=== PATIENT | female | born 1990 | race African-American/Black ===

== ENCOUNTER 2016-11-18 06:21 | Inpatient (IN) | payer OTHER ==
[2016-11-18 07:14] LABS: AMNISURE (ROM) POSITIVE (NEGATIVE)
[2016-11-18 07:22] LABS: APPEARANCE,URINE SLIGHTLY-CLOUDY; BILIRUBIN,URINE NEGATIVE (NEGATIVE); GLUCOSE, URINE NEGATIVE (NEGATIVE); KETONES,URINE NEGATIVE (NEGATIVE); LEUKOCYTE ESTERASE,URINE NEGATIVE (NEGATIVE); NITRITE,URINE NEGATIVE (NEGATIVE); PROTEIN,URINE NEGATIVE (NEGATIVE); URINE SPECIFIC GRAVITY 1.004; UROBILINOGEN,URINE NEGATIVE mg/dL (<2.0)
[2016-11-18] MEDS ORDERED: RINGERS SOLUTION,LACTATED 300 ML IV ONE (07:23)
[2016-11-18] MEDS ORDERED: RINGERS SOLUTION,LACTATED 1,000 ML IV PRN ×3 (07:23→23:19)
[2016-11-18] MEDS ORDERED: OXYTOCIN/NORMAL SALINE 1,000 ML IV PRN ×2 (07:23→19:15)
[2016-11-18] MEDS ORDERED: OXYTOCIN/NORMAL SALINE 20 UNIT/1,000 ML RTUINJ ONE ×2 (07:40→19:38)
[2016-11-18] MEDS ORDERED: PENICILLIN G-K 5 MILLION UNIT VIAL ONE ×2 (07:40→12:05)
[2016-11-18 07:45] LABS: URINE BARBITURATES SCREEN NEGATIVE; URINE METHADONE SCREEN NEGATIVE; URINE OPIATES LOW NEGATIVE; URINE PHENCYCLIDINE SCREEN NEGATIVE
[2016-11-18 07:48] LABS: ABSOLUTE EOSINOPHILS # (AUTO) 0.1 10^3/uL (0.0-0.6); ABSOLUTE LYMPHOCYTES (AUTO) 1.2 10^3/uL (0.5-4.7); ABSOLUTE MONOCYTES (AUTO) 0.7 10^3/uL (0.1-1.4); ABSOLUTE NEUT (AUTO) 5.5 10^3/uL (1.7-8.2); BASOPHILS % (AUTO) 0.4 % (0-2); HEMATOCRIT 31.6 % (36.0-47.0); HEMOGLOBIN 10.7 g/dL (12.0-15.5); HGB HCT DIFFERENCE 0.5; MEAN CORPUSCULAR HEMOGLOBIN 27.1 pg (27.0-33.4); MEAN CORPUSCULAR HGB CONC 33.9 g/dL (32.0-36.0); MEAN CORPUSCULAR VOLUME 80 fl (80-97); MONOCYTES % (AUTO) 9.3 % (3-13); RED BLOOD COUNT 3.96 10^6/uL (3.72-5.28); RED CELL DISTRIBUTION WIDTH 14.8 % (11.5-14.0); SEGMENTED NEUTROPHILS % (AUTO) 73.3 % (42-78); WHITE BLOOD COUNT 7.5 10^3/uL (4.0-10.5)
--- NOTE | 2016-11-18 08:01 | L&D Flow Sheet ---
LD Flowsheet Datetime Report Generated by CPN: 11/18/2016 08:00 Datetime: 11/18/2016 07:55 NBP Sys/Leanne/Mean (mmHg): 115 (QS system process) : 74 (QS system process) : 90 (QS system process) Pulse: 86 (QS system process) Communication LaborFlag: Antepartum (QS system process) Datetime: 11/18/2016 07:54 NBP Sys/Leanne/Mean (mmHg): 121 (QS system process) : 78 (QS system process) : 95 (QS system process) Pulse: 85 (QS system process) Communication LaborFlag: Antepartum (QS system process) Datetime: 11/18/2016 07:25 NBP Sys/Leanne/Mean (mmHg): 121 (QS system process) : 83 (QS system process) : 98 (QS system process) Pulse: 83 (QS system process) Communication LaborFlag: Antepartum (QS system process) Datetime: 11/18/2016 07:02 Uterine Activity Frequency (min): unsure (Alicia Prasanth, RN) Pain Pain Scale: 5 (Alicia Prasanth, RN) Pain Presence: Intermittent (Alicia Prasanth, RN) Pain Type: Contraction (Alicia Prasanth, RN) Pain Location: Abdomen; Back (Alicia Prasanth, RN) Pain Coping: Breathing Through Contractions (Alicia Prasanth, RN) Vaginal Exam Membrane Status: Ruptured (Annotations: per pt) (Alicia Prasanth, RN) Membranes Ruptured Date/Time: 11/18/2016 03:00 (Alicia Prasanth, RN) Membranes Rupture Method: Spontaneous (Alicia Prasanth, RN) Amniotic Fluid Color: Clear (Alicia Prasanth, RN) Amniotic Fluid Amount: Small (Alicia Prasanth, RN) Amniotic Fluid Odor: Normal (Alicia Prasanth, RN) Vaginal Bleeding: None (Alicia Prasanth, RN) Pool: Negative (Alicia Prasanth, RN) Maternal Assessment Level of Consciousness: Fully Conscious (Alicia Prasanth, RN) DTR's/Clonus: DTRs 2+; No Clonus (Alicia Prasanth, RN) Headache: Denies (Alicia Prasanth, RN) Breath Sounds, Left: Clear and Equal (Alicia Prasanth, RN) Breath Sounds, Right: Clear and Equal (Alicia Prasanth, RN) Nausea/Vomiting: Denies (Alicia Prasanth, RN) RUQ Epigastric Pain: Denies (Alicia Prasanth, RN) Communication LaborFlag: Antepartum (QS system process) Datetime: 11/18/2016 06:55 NBP Sys/Leanne/Mean (mmHg): 129 (QS system process) : 79 (QS system process) : 99 (QS system process) Pulse: 75 (QS system process) Temperature (F): 99.3 (Alicia Prasanth, RN) Temperature (C): 37.4 (QS system process) Temperature Route: Oral (Alicia Prasanth, RN) Communication LaborFlag: Antepartum (QS system process) Datetime: 11/18/2016 06:54 Patient Care Patient Care Comments: amnisure collected and sent (Alicia Prasanth, RN) Datetime: 11/18/2016 06:00 Vital Signs Stage of : Antepartum (Alicia Prasanth, RN)
--- NOTE | 2016-11-18 09:55 | L&D Progress Notes ---
PROGRESS NOTES Datetime Report Generated by CPN: 11/18/2016 09:54 PROGRESS NOTE Impression: Normal Progression of Labor Procedures: Sterile Vag Exam Plan: Continue Present Management; Augmentation Informed Consent Obtained: Vaginal Delivery; Risks, Benefits and Alternatives Discussed Vital Signs : Reviewed Comment: 26 yo presents with ROM EDC 11/11/16 EGA 41 weeks history of sickle cell trait - spouse negative positive GBS nkda unremarkable history abdomen nontender ctx irregular4-5 min apart start pitocin pain management reviewed pt will decide if she wants an epidural gbs prophylaxis- 1 dose given anticipate poc reviewed with pt and mother VAGINAL EXAM Dilatation: 3 Effacement: 90 Station: -2 MEMBRANES Amniotic Fluid Color: Clear FETUS A Monitoring: External US Variability: Moderate 6-25bpm Accelerations: 10X10 Decelerations: None FHR Category: Category I : 41.0 SIGNATURE SIGNATURE: [id number] Assignment: Damain MD Christiano Signature: with User ID: [email or web address] : with User ID: [email or web address]
[2016-11-18] MEDS ORDERED: EPHEDRINE SULFATE INJ 50 MG/1 ML AMPULE ONE (12:04)
[2016-11-18] MEDS ORDERED: BUPIVACAINE HCL 0.25 % INJ/PF (2.5 MG/1 ML) 30 ML VIAL ONE (12:05)
[2016-11-18] MEDS ORDERED: FENTANYL/BUPIVACAINE/NS/PF 200 MCG/100 ML RTUINJ EPI ONE (12:05)
[2016-11-18] MEDS ORDERED: LIDOCAINE 2% INJ-PF (20 MG/ML) 10 ML AMPUL ONE ×2 (15:25→19:15)
--- NOTE | 2016-11-18 16:26 | L&D Progress Notes ---
PROGRESS NOTES Datetime Report Generated by CPN: 11/18/2016 16:26 PROGRESS NOTE Procedures: Scalp Electrode Plan: Continue Present Management Informed Consent Obtained: Vaginal Delivery; Risks, Benefits and Alternatives Discussed Informed Consent Obtained: Vaginal Delivery; Risks, Benefits and Alternatives Discussed Vital Signs : Reviewed Comment: late decelerations noted ctx 1-3 minutes apart pitocin at 6 mu/ min pt repositioned scalp lead placed pt tolerated well noted thick particulate meconium O2 via facemask pitocin off minimal variability ctxs 1-2 min poc reviewed anticipate contnue prophylaxis poc reviewed with pt and family VAGINAL EXAM Dilatation: 7 Dilatation: 3 Effacement: 90 Effacement: 90 Station: -1 Station: -2 MEMBRANES Membranes: Ruptured Membranes: Ruptured Amniotic Fluid Color: Meconium, Particulate Amniotic Fluid Color: Clear FETUS A FHR - Baseline: 150 Monitoring: Internal Scalp Electrode Variability: Minimal - Undetectable to <=5bpm Decelerations: Late : 41.0 Presentation: Vertex FETUS C SIGNATURE: [id number] Assignment: Sary Alvarado MD Signature: with User ID: [email or web address] : with User ID: [email or web address]
[2016-11-18] MEDS ORDERED: CEFAZOLIN 1 GM/D5W RTU 1 GM/50 ML RTUPB IV ONE (19:13)
[2016-11-18] MEDS ORDERED: CITRIC ACID/SODIUM CITRATE ORAL SOLN 15 ML UDCUP ONE (19:13)
[2016-11-18] MEDS ORDERED: MEASLES,MUMPS&RUBELLA VACC/PF 0.5 ML VIAL SUBCUT PRN (19:15)
[2016-11-18] MEDS ORDERED: SIMETHICONE 80 MG TAB.CHEW PO PRN (19:15)
[2016-11-18] MEDS ORDERED: HYDROMORPHONE HCL INJ/PF 2 MG/ML AMPULE IV PRN (19:15)
[2016-11-18] MEDS ORDERED: ACETAMINOPHEN 100 ML IV PRN (19:15)
[2016-11-18] MEDS ORDERED: DIPH/PERTUSS(ACELL)/TETANUS VAC/PF 0.5 ML SYR (>=10YO) IM PRN (19:15)
[2016-11-18] MEDS ORDERED: ACETAMINOPHEN 325 MG TABLET PO PRN (19:15)
[2016-11-18] MEDS ORDERED: OXYCODONE-ACETAMINOPHEN 5-325 MG TABLET PO PRN (19:15)
[2016-11-18] MEDS ORDERED: PROMETHAZINE HCL INJ 25 MG/1 ML VIAL IV PRN (19:15)
[2016-11-18] MEDS ORDERED: ONDANSETRON HCL INJ/PF 4 MG/2 ML SDV ONE (19:38)
[2016-11-18] MEDS ORDERED: FENTANYL CITRATE INJ/PF 100 MCG/2 ML AMPUL ONE (19:39)
[2016-11-18] MEDS ORDERED: MIDAZOLAM 2 MG/2 ML INJ ONE (19:39)
[2016-11-18] MEDS ORDERED: MORPHINE SULFATE 10 MG/ML INJ ONE (19:39)
--- NOTE | 2016-11-18 20:02 | L&D Flow Sheet ---
LD Flowsheet Datetime Report Generated by CPN: 11/18/2016 20:00 Datetime: 11/18/2016 19:32 NBP Sys/Leanne/Mean (mmHg): 147 (QS system process) : 72 (QS system process) : 99 (QS system process) Pulse: 96 (QS system process) LaborFlag: Antepartum (QS system process) Datetime: 11/18/2016 19:30 Monitor Mode: External; Palpation (YAKELIN Walton) Frequency (min): 2-2.5 (Lexi Taras, RNC) Quality: Mild/Moderate (Lexi Taras, RNC) Duration (sec): 60-90 (Lexi Taras, RNC) Duration Criteria: Less than Two 120 Second Contractions (Lexi Taras, RNC) Pattern: Normal: <= 5 Contractions in 10 Minutes (Lexi Taras, RNC) Resting Tone (Palpate): Relaxed (Lexi Taras, RNC) Monitor Mode: External US (Lexi Grajeda, RNC) FHR Baseline Rate : 150 (Lexi Taras, RNC) Variability: Moderate 6-25 bpm (Lexi Taras, RNC) Accelerations: 15X15 (Lexi Taras, RNC) Decelerations: None (Lexi Taras, RNC) Anesthesia Comments: Franklin Fonseca CRNA at bedside bolusing epidural (Zonia Rasmussen, RN) Datetime: 11/18/2016 19:27 Communication Comments: Report to Kareen Segal RN, Abigail Grajeda RNC. (Lexi Grajeda, RNC) Datetime: 11/18/2016 19:25 Communication Comments: report received from Abigail Grajeda RN (Yvonne Segal RN) Datetime: 11/18/2016 19:16 NBP Sys/Leanne/Mean (mmHg): 131 (QS system process) : 77 (QS system process) : 97 (QS system process) Pulse: 115 (QS system process) LaborFlag: Antepartum (QS system process) Datetime: 11/18/2016 19:15 Monitor Mode: External; Palpation (YAKELIN Walton) Frequency (min): 2.5-4 (YAKELIN Walton) Quality: Moderate to Strong (YAKELIN Walton) Duration (sec): 60-90 (YAKELIN Walton) Duration Criteria: Less than Two 120 Second Contractions (YAKELIN Walton) Pattern: Normal: <= 5 Contractions in 10 Minutes (YAKELIN Walton) Resting Tone (Palpate): Relaxed (YAKELIN Walton) Monitor Mode: External US (YAKELIN Walton) FHR Baseline Rate : 155 (Lexi Taras, RNC) Variability: Moderate 6-25 bpm (Lexi Grajeda, RNC) Accelerations: 15X15 (Lexi Grajeda, RNC) Decelerations: None (Lexi Grajeda, RNC) Antibiotics: Ancef IV (Gm) @ 1 (Antonella Romero, RN) Antiemetics/Antacids: Bicitra 15 ml PO (Antonella Romero, ALEC) Datetime: 11/18/2016 19:06 Dilatation (cm): 9.0 (Lexi Grajeda, RNC) Effacement (%): 85 (Lexi Grajeda, RNC) Station: 0 (Lexi Grajeda, RNC) Exam by: Dr. Alvarado (Lexi Grajeda, RNC) Vaginal Exam Comments: Swollen anterior cervix per Dr. Alvarado (Lexi Grajeda, RNC) Communication Comments: C/S called (Lexi Grajeda RNC) Datetime: 11/18/2016 19:00 NBP Sys/Leanne/Mean (mmHg): 132 (QS system process) : 66 (QS system process) : 92 (QS system process) Pulse: 96 (QS system process) Monitor Mode: External; Palpation (Lexi Traas, RNC) Frequency (min): 2.5-4 (Lexi Taras, RNC) Quality: Mild/Moderate (Lexi Taras, RNC) Duration (sec): 90-120 (Lexi Taras, RNC) Duration Criteria: Less than Two 120 Second Contractions (Lexi Taras, RNC) Pattern: Normal: <= 5 Contractions in 10 Minutes (Lexi Taras, RNC) Resting Tone (Palpate): Relaxed (Lexi Taras, RNC) Monitor Mode: External US (Lexi Taras, RNC) FHR Baseline Rate : 150 (Lexi Taras, RNC) Variability: Moderate 6-25 bpm (Lexi Taras, RNC) Accelerations: 15X15 (Lexi Taras, RNC) Decelerations: None (Lexi Taras, RNC) LaborFlag: Antepartum (QS system process) Datetime: 11/18/2016 18:46 NBP Sys/Leanne/Mean (mmHg): 129 (QS system process) : 64 (QS system process) : 90 (QS system process) Pulse: 93 (QS system process) LaborFlag: Antepartum (QS system process) Datetime: 11/18/2016 18:45 Monitor Mode: External; Palpation (Lexi Taras, RNC) Frequency (min): 2.5-5 (Lexi Taras, RNC) Quality: Moderate to Strong (Lexi Taras, RNC) Duration (sec): 60-90 (Lexi Taras, RNC) Duration Criteria: Less than Two 120 Second Contractions (Lexi Taras, RNC) Pattern: Normal: <= 5 Contractions in 10 Minutes (Lexi Taras, RNC) Resting Tone (Palpate): Relaxed (Lexi Taras, RNC) Monitor Mode: External US (Lexi Taras, RNC) FHR Baseline Rate : 145 (Lexi Taras, RNC) Variability: Moderate 6-25 bpm (Lexi Taras, RNC) Accelerations: 15X15 (Lexi Taras, RNC) Decelerations: None (Lexi Taras, RNC) Datetime: 11/18/2016 18:31 NBP Sys/Leanne/Mean (mmHg): 136 (QS system process) : 86 (QS system process) : 106 (QS system process) Pulse: 103 (QS system process) LaborFlag: Antepartum (QS system process) Datetime: 11/18/2016 18:30 Monitor Mode: External; Palpation (Lexialena Grajeda, RNC) Frequency (min): 2.5-4 (Lexi Taras, RNC) Quality: Moderate to Strong (Lexi Taras, RNC) Duration (sec): 50-80 (Lexi Taras, RNC) Duration Criteria: Less than Two 120 Second Contractions (Lexi Taras, RNC) Pattern: Normal: <= 5 Contractions in 10 Minutes (Lexi Taras, RNC) Resting Tone (Palpate): Relaxed (Lexi Taras, RNC) Monitor Mode: External US (Lexi Taras, RNC) FHR Baseline Rate : 155 (Lexi Taras, RNC) Variability: Minimal - Undetectable to <=5 bpm (Lexi Taras, RNC) Accelerations: None (Lexi Taras, RNC) Decelerations: Early (Lexi Taras, RNC) Datetime: 11/18/2016 18:16 NBP Sys/Leanne/Mean (mmHg): 144 (QS system process) : 89 (QS system process) : 111 (QS system process) Pulse: 107 (QS system process) Respirations: 17 (Lexi Grajeda, RNC) Temperature (F): 99.7 (Lexi Grajeda, RNC) Temperature (C): 37.6 (QS system process) Temperature Route: Oral (Lexi Grajeda RNC) Pain Assessment Comments: Pt states intermittent pressure with contractions. (Lexi Grajeda, RNC) LaborFlag: Antepartum (QS system process) Datetime: 11/18/2016 18:15 Monitor Mode: External; Palpation (Lexi Grajeda RNC) Frequency (min): 2.5-3 (Lexi Grajeda, RNC) Quality: Moderate to Strong (Lexi Grajeda, RNC) Duration (sec): 60-120 (Lexi Grajeda, RNC) Duration Criteria: Less than Two 120 Second Contractions (Lexi Grajeda, RNC) Pattern: Normal: <= 5 Contractions in 10 Minutes (Lexi Grajeda, RNC) Resting Tone (Palpate): Relaxed (Lexi Grajeda, RNC) Monitor Mode: Internal Scalp Electrode (Lexi Grajeda, RNC) FHR Baseline Rate : 160 (Lexi Grajeda, RNC) Variability: Minimal - Undetectable to <=5 bpm (Lexialena Grajeda, RNC) Accelerations: None (Lexi Grajeda, RNC) Decelerations: Early (Lexi Grajeda, RNC) Patient Position/Activity: Peanut Ball; Right Extreme (Lexi Grajeda, RNC) Datetime: 11/18/2016 18:00 NBP Sys/Elanne/Mean (mmHg): 130 (QS system process) : 76 (QS system process) : 97 (QS system process) Pulse: 98 (QS system process) Monitor Mode: External; Palpation (Lexi Taras, RNC) Frequency (min): 2.5-4 (Lexi Taras, RNC) Quality: Moderate (Lexi Taras, RNC) Duration (sec): 60-90 (Lexi Taras, RNC) Duration Criteria: Less than Two 120 Second Contractions (Lexi Taras, RNC) Pattern: Normal: <= 5 Contractions in 10 Minutes (Lexi Taras, RNC) Resting Tone (Palpate): Relaxed (Lexi Taras, RNC) Monitor Mode: External US (Lexi Taras, RNC) FHR Baseline Rate : 155 (Lexi Taras, RNC) Variability: Minimal - Undetectable to <=5 bpm (Lexi Taras, RNC) Accelerations: Prolonged (Lexi Taras, RNC) Decelerations: None (Lexi Taras, RNC) LaborFlag: Antepartum (QS system process) Datetime: 11/18/2016 17:46 NBP Sys/Leanne/Mean (mmHg): 135 (QS system process) : 81 (QS system process) : 101 (QS system process) Pulse: 96 (QS system process) LaborFlag: Antepartum (QS system process) Datetime: 11/18/2016 17:45 Monitor Mode: External; Palpation (Lexi Taras, RNC) Frequency (min): 2-2.5 (Lexi Taras, RNC) Quality: Mild/Moderate (Lexi Taras, RNC) Duration (sec): 60-90 (Lexi Taras, RNC) Duration Criteria: Less than Two 120 Second Contractions (Lexi Taras, RNC) Pattern: Normal: <= 5 Contractions in 10 Minutes (Lexi Taras, RNC) Resting Tone (Palpate): Relaxed (Lexi Taras, RNC) Monitor Mode: Internal Scalp Electrode (Lexi Taras, RNC) FHR Baseline Rate : 165 (Lexi Taras, RNC) Variability: Minimal - Undetectable to <=5 bpm (Lexi Taras, RNC) Accelerations: None (Lexi Taras, RNC) Decelerations: None (Lexi Taras, RNC) Datetime: 11/18/2016 17:32 NBP Sys/Leanne/Mean (mmHg): 135 (QS system process) : 77 (QS system process) : 100 (QS system process) Pulse: 93 (QS system process) LaborFlag: Antepartum (QS system process) Datetime: 11/18/2016 17:30 Monitor Mode: External; Palpation (Lexi Taras, RNC) Frequency (min): 2.5-4 (Lexi Taras, RNC) Quality: Moderate (Lexi Taras, RNC) Duration (sec): 60-90 (Lexi Taras, RNC) Duration Criteria: Less than Two 120 Second Contractions (Lexi Taras, RNC) Pattern: Normal: <= 5 Contractions in 10 Minutes (Lexi Taras, RNC) Resting Tone (Palpate): Relaxed (Lexi Taras, RNC) Monitor Mode: Internal Scalp Electrode (Lexi Taras, RNC) FHR Baseline Rate : 165 (Lexi Taras, RNC) Variability: Minimal - Undetectable to <=5 bpm (Lexi Taras, RNC) Accelerations: Prolonged (Lexi Taras, RNC) Decelerations: Early (Lexi Taras, RNC) Datetime: 11/18/2016 17:16 NBP Sys/Leanne/Mean (mmHg): 134 (QS system process) : 75 (QS system process) : 99 (QS system process) Pulse: 92 (QS system process) LaborFlag: Antepartum (QS system process) Datetime: 11/18/2016 17:15 Monitor Mode: External; Palpation (Lexi Taras, RNC) Frequency (min): 1.5-3 (Lexi Taras, RNC) Quality: Mild/Moderate (Lexi Taras, RNC) Duration (sec): 60-90 (Lexi Taras, RNC) Duration Criteria: Less than Two 120 Second Contractions (Lexi Taras, RNC) Pattern: Normal: <= 5 Contractions in 10 Minutes (Lexi Taras, RNC) Resting Tone (Palpate): Relaxed (Lexi Taras, RNC) Monitor Mode: External US (Lexi Taras, RNC) FHR Baseline Rate : 155 (Lexi Taras, RNC) Variability: Minimal - Undetectable to <=5 bpm (Lexi Taras, RNC) Accelerations: Prolonged (Lexi Taras, RNC) Decelerations: None (Lexi Taras, RNC) Datetime: 11/18/2016 17:08 Respirations: 18 (Lexi Taras, RNC) [facility] Temperature (C): 37.3 (QS system process) Temperature Route: Oral (Lexi Grajeda [facility]) LaborFlag: Antepartum (QS system process) Datetime: 11/18/2016 17:07 Dilatation (cm): 9.0 [facility] Effacement (%): 90 (Lexi Grajeda [facility]) [facility]: [facility] Exam by: A Kathy CNM ([facility] Datetime: 11/18/2016 17:01 NBP Sys/Leanne/Mean (mmHg): 140 (QS system process) : 75 (QS system process) : 101 (QS system process) Pulse: 93 (QS system process) LaborFlag: Antepartum (QS system process) Datetime: 11/18/2016 17:00 Monitor Mode: External; Palpation (Lexi Taras, RNC) Frequency (min): 1.5-2 (Lexi Taras, RNC) Quality: Moderate to Strong (Lexi Taras, RNC) Duration (sec): 60-90 (Lexi Taras, RNC) Duration Criteria: Less than Two 120 Second Contractions (Lexi Taras, RNC) Pattern: Normal: <= 5 Contractions in 10 Minutes (Lexi Taras, RNC) Resting Tone (Palpate): Relaxed (Lexi Taras, RNC) Monitor Mode: External US (Lexi Taras, RNC) FHR Baseline Rate : 155 (Lexi Taras, RNC) Variability: Minimal - Undetectable to <=5 bpm (Lexi Taras, RNC) Accelerations: None (Lexi Taras, RNC) Decelerations: None (Lexi Taras, RNC) Datetime: 11/18/2016 16:50 I/O Interventions: Popsicle (Lexi Taras, RNC) Datetime: 11/18/2016 16:47 NBP Sys/Leanne/Mean (mmHg): 130 (QS system process) : 69 (QS system process) : 94 (QS system process) Pulse: 86 (QS system process) LaborFlag: Antepartum (QS system process) Datetime: 11/18/2016 16:45 Monitor Mode: External; Palpation (Lexi Grajeda, RNC) Frequency (min): 1.5-3 (Lexialena Grajeda, RNC) Quality: Moderate to Strong (Lexi Taras, RNC) Duration (sec): 60-90 (Lexi Taras, RNC) Duration Criteria: Less than Two 120 Second Contractions (Lexi Taras, RNC) Pattern: Normal: <= 5 Contractions in 10 Minutes (Lexi Taras, RNC) Resting Tone (Palpate): Relaxed (Lexi Taras, RNC) Monitor Mode: External US (Lexi Grajeda, RNC) FHR Baseline Rate : 150 (Lexi Taras, RNC) Variability: Minimal - Undetectable to <=5 bpm (Lexi Taras, RNC) Accelerations: None (Lexi Taras, RNC) Decelerations: None (Lexi Taras, RNC) Datetime: 11/18/2016 16:44 IV/Blood Work: IV Bolus Given ml @ 300 (Lexi Grajeda, RNC) Oxygen Method: Room Air (Lexi Grajeda, RNC) Patient Position/Activity: Left Lateral (Lexi Grajeda, RNC) Datetime: 11/18/2016 16:31 NBP Sys/Leanne/Mean (mmHg): 128 (QS system process) : 70 (QS system process) : 90 (QS system process) Pulse: 91 (QS system process) LaborFlag: Antepartum (QS system process) Datetime: 11/18/2016 16:30 Monitor Mode: External; Palpation (Lexi Taras, RNC) Frequency (min): 1.5-3 (Lexi Taras, RNC) Quality: Moderate (Lexi Taras, RNC) Duration (sec): 60-90 (Lexi Taras, RNC) Duration Criteria: Less than Two 120 Second Contractions (Lexi Taras, RNC) Pattern: Normal: <= 5 Contractions in 10 Minutes (Lexi Taras, RNC) Resting Tone (Palpate): Relaxed (Lexi Taras, RNC) Monitor Mode: External US (Lexi Taras, RNC) FHR Baseline Rate : 155 (Lexi Taras, RNC) Variability: Minimal - Undetectable to <=5 bpm (Lexi Taras, RNC) Accelerations: None (Lexi Taras, RNC) Decelerations: None (Lexi Taras, RNC) Datetime: 11/18/2016 16:20 Antibiotics: Penicillin IV (Units) @ 2.5 Million (Lexi Taras, RNC) Datetime: 11/18/2016 16:17 NBP Sys/Leanne/Mean (mmHg): 129 (QS system process) : 67 (QS system process) : 92 (QS system process) Pulse: 82 (QS system process) Respirations: 17 (Lexi Grajeda, RNC) Temperature (F): 99.7 (Lexi Grajeda, RNC) Temperature (C): 37.6 (QS system process) Temperature Route: Axillary (Lexi Grajeda, RNC) LaborFlag: Antepartum (QS system process) Datetime: 11/18/2016 16:15 Monitor Mode: External; Palpation (Lexi Grajeda, RNC) Frequency (min): 2-2.5 (Lexi Grajeda, RNC) Quality: Moderate to Strong (Lexi Grajeda, RNC) Duration (sec): 60-90 (Lexi Grajeda, RNC) Duration Criteria: Less than Two 120 Second Contractions (Lexi Grajeda, RNC) Pattern: Normal: <= 5 Contractions in 10 Minutes (Lexi Grajeda, RNC) Resting Tone (Palpate): Relaxed (Lexi Grajeda, RNC) Monitor Mode: External US (Lexi Grajeda, RNC) FHR Baseline Rate : 150 (Lexi Grajeda, RNC) Variability: Moderate 6-25 bpm (Lexialena Grajeda, RNC) Accelerations: None (Lexi Grajeda, RNC) Decelerations: None (Lexi Grajeda, RNC) Datetime: 11/18/2016 16:03 Actions for Decelerations: Oxygen Applied; Pitocin Off; IV Bolus (YAKELIN Walton) Pitocin (milliunit): Pitocin Discontinued (YAKELIN Walton) Communication Comments: A Emmel CNM at (YAKELIN Walton) Datetime: 11/18/2016 16:02 NBP Sys/Leanne/Mean (mmHg): 122 (QS system process) : 58 (QS system process) : 84 (QS system process) Pulse: 98 (QS system process) LaborFlag: Antepartum (QS system process) Datetime: 11/18/2016 16:00 Monitor Mode: External; Palpation (YAKELIN Walton) Frequency (min): 2-4 (Lexi Taras, RNC) Quality: Mild/Moderate (Lexi Atras, RNC) Duration (sec): 60-120 (Lexi Taras, RNC) Duration Criteria: Less than Two 120 Second Contractions (Lexi Taras, RNC) Pattern: Normal: <= 5 Contractions in 10 Minutes (Lexi Taras, RNC) Resting Tone (Palpate): Relaxed (Lexi Taras, RNC) Monitor Mode: External US (Lexi Taras, RNC) FHR Baseline Rate : 140 (Lexi Taras, RNC) Variability: Moderate 6-25 bpm (Lexi Taras, RNC) Accelerations: None (Lexi Taras, RNC) Decelerations: Late (Lexi Taras, RNC) Datetime: 11/18/2016 15:56 NBP Sys/Leanne/Mean (mmHg): 126 (QS system process) : 63 (QS system process) : 87 (QS system process) Pulse: 77 (QS system process) LaborFlag: Antepartum (QS system process) Datetime: 11/18/2016 15:52 Actions for Decelerations: Oxygen Applied; IV Bolus; Provider Reviewed Strip; Provider Notified (YAKELIN Walton) Dilatation (cm): 7.0 (YAKELIN Walton) Effacement (%): 90 (YAKELIN Walton) Station: -1 (YAKELIN Walton) Exam by: Moni Chavez CNM (YAKELIN Walton) Amniotic Fluid Color: Moderate Meconium (YAKELIN Walton) Oxygen Amount : 10 (YAKELIN Walton) Oxygen Method: Non-Rebreather (YAKELIN Waltno) Patient Position/Activity: Right Lateral (YAKELIN Walton) Datetime: 11/18/2016 15:45 Monitor Mode: External; Palpation (YAKELIN Walton) Frequency (min): 2.5-4 (YAKELIN Walton) Quality: Mild/Moderate (YAKELIN Walton) Duration (sec): 60-90 (YAKELIN Walton) Duration Criteria: Less than Two 120 Second Contractions (YAKELIN Walton) Pattern: Normal: <= 5 Contractions in 10 Minutes (YAKELIN Walton) Resting Tone (Palpate): Relaxed (YAKELIN Walton) Monitor Mode: External US (YAKELIN Walton) FHR Baseline Rate : 145 (YAKELIN Walton) Variability: Moderate 6-25 bpm (YAKELIN Walton) Accelerations: 15X15 (YAKELIN Walton) Decelerations: Late (YAKELIN Walton) Datetime: 11/18/2016 15:32 NBP Sys/Leanne/Mean (mmHg): 110 (QS system process) : 63 (QS system process) : 80 (QS system process) Pulse: 78 (QS system process) LaborFlag: Antepartum (QS system process) Datetime: 11/18/2016 15:30 Monitor Mode: External; Palpation (Lexi Grajeda, RNC) Frequency (min): 2.5-4 (Lexi Grajeda, RNC) Quality: Moderate (Lexi Taras, RNC) Duration (sec): 60-120 (Lexialena Grajeda, RNC) Duration Criteria: Less than Two 120 Second Contractions (Lexi Grajeda, RNC) Pattern: Normal: <= 5 Contractions in 10 Minutes (Lexi Taras, RNC) Resting Tone (Palpate): Relaxed (Lexi Grajeda, RNC) Monitor Mode: External US (Lexi Grajeda, RNC) FHR Baseline Rate : 140 (Lexi Grajeda, RNC) Variability: Moderate 6-25 bpm (Lexi Taras, RNC) Accelerations: 15X15 (Lexi Grajeda, RNC) Decelerations: None (Lexi Grajeda, RNC) Datetime: 11/18/2016 15:25 Epidural Procedure Other: Redose (Lexi Grajeda, RNC) Anesthesia Comments: Dr. Hernandez at BS, Bolus dose administered (Lexi Grajeda, RNC) Datetime: 11/18/2016 15:17 NBP Sys/Leanne/Mean (mmHg): 125 (QS system process) : 74 (QS system process) : 95 (QS system process) Pulse: 102 (QS system process) LaborFlag: Antepartum (QS system process) Datetime: 11/18/2016 15:15 NBP Sys/Leanne/Mean (mmHg): 122 (QS system process) : 71 (QS system process) : 91 (QS system process) Pulse: 101 (QS system process) Monitor Mode: External; Palpation (Lexi Taras, RNC) Frequency (min): 2.5-3 (Lexi Taras, RNC) Quality: Moderate (Lexi Taras, RNC) Duration (sec): 60-90 (Lexi Taras, RNC) Duration Criteria: Less than Two 120 Second Contractions (Lexi Taras, RNC) Pattern: Normal: <= 5 Contractions in 10 Minutes (Lexi Taras, RNC) Resting Tone (Palpate): Relaxed (Lexi Taras, RNC) Monitor Mode: External US (Lexi Taras, RNC) FHR Baseline Rate : 145 (Lexi Taras, RNC) Variability: Moderate 6-25 bpm (Lexi Taras, RNC) Accelerations: 15X15 (Lexi Taras, RNC) Decelerations: None (Lexi Taras, RNC) LaborFlag: Antepartum (QS system process) Datetime: 11/18/2016 15:01 NBP Sys/Leanne/Mean (mmHg): 122 (QS system process) : 72 (QS system process) : 91 (QS system process) Pulse: 94 (QS system process) LaborFlag: Antepartum (QS system process) Datetime: 11/18/2016 15:00 Monitor Mode: External; Palpation (Lexi Grajeda, RNC) Frequency (min): 1.5-2 (Lexi Grajeda, RNC) Quality: Mild/Moderate (Lexi Taras, RNC) Duration (sec): 60-80 (Lexi Taras, RNC) Duration Criteria: Less than Two 120 Second Contractions (Lexi Taras, RNC) Pattern: Normal: <= 5 Contractions in 10 Minutes (Lexi Taras, RNC) Resting Tone (Palpate): Relaxed (Lexi Taras, RNC) Monitor Mode: External US (Lexi Grajeda, RNC) FHR Baseline Rate : 145 (Lexi Taras, RNC) Variability: Moderate 6-25 bpm (Lexi Taras, RNC) Accelerations: Prolonged (Lexi Taras, RNC) Decelerations: None (Lexi Taras, RNC) Datetime: 11/18/2016 14:59 Dilatation (cm): 7.5 (Lexi Taras, RNC) Effacement (%): 95 (Lexialena Grajeda, RNC) Station: -1 (Lexialena Grajeda, RNC) Exam by: Abigail HAMLIN (Lexi Grajeda, RNC) Datetime: 11/18/2016 14:46 NBP Sys/Leanne/Mean (mmHg): 117 (QS system process) : 92 (QS system process) : 100 (QS system process) Pulse: 105 (QS system process) LaborFlag: Antepartum (QS system process) Datetime: 11/18/2016 14:45 Monitor Mode: External; Palpation (Lexi Grajeda, RNC) Frequency (min): 2.5-4 (Lexi Grajeda, RNC) Quality: Moderate (Lexi Grajeda, RNC) Duration (sec): 60-90 (Lexialena Grajeda, RNC) Duration Criteria: Less than Two 120 Second Contractions (Lexi Grajeda, RNC) Pattern: Normal: <= 5 Contractions in 10 Minutes (Lexi Grajeda, RNC) Resting Tone (Palpate): Relaxed (Lexi Grajeda, RNC) Monitor Mode: External US (Lexi Grajeda, RNC) FHR Baseline Rate : 140 (Lexi Grajeda, RNC) Variability: Moderate 6-25 bpm (Lexi Grajeda, RNC) Accelerations: 15X15 (Lexi Taras, RNC) Decelerations: None (YAKELIN Walton) Datetime: 11/18/2016 14:31 NBP Sys/Leanne/Mean (mmHg): 124 (QS system process) : 67 (QS system process) : 90 (QS system process) Pulse: 89 (QS system process) LaborFlag: Antepartum (QS system process) Datetime: 11/18/2016 14:30 Monitor Mode: External; Palpation (YAKELIN Walton) Frequency (min): 2.5-4 (YAKELIN Walton) Quality: Moderate (YAKELIN Walton) Duration (sec): 60-90 (YAKELIN Walton) Duration Criteria: Less than Two 120 Second Contractions (YAKELIN Walton) Pattern: Normal: <= 5 Contractions in 10 Minutes (YAKELIN Walton) Resting Tone (Palpate): Relaxed (YAKELIN Walton) Monitor Mode: External US (YAKELIN Walton) FHR Baseline Rate : 150 (YAKELIN Walton) Variability: Moderate 6-25 bpm (Lexi Taras, RNC) Accelerations: 15X15 (Lexi Grajeda, RNC) Decelerations: None (Lexi Grajeda, RNC) Datetime: 11/18/2016 14:17 NBP Sys/Leanne/Mean (mmHg): 131 (QS system process) : 70 (QS system process) : 91 (QS system process) Pulse: 90 (QS system process) LaborFlag: Antepartum (QS system process) Datetime: 11/18/2016 14:15 Monitor Mode: External; Palpation (Lexi Grajeda RNC) Frequency (min): 2.5-3 (Lexi Grajeda RNC) Quality: Moderate to Strong (Lexi Grajeda RNC) Duration (sec): 60-90 (Lexi Grajeda RNC) Duration Criteria: Less than Two 120 Second Contractions (Lexi Grajeda RNC) Pattern: Normal: <= 5 Contractions in 10 Minutes (Lexi Grajeda RNC) Resting Tone (Palpate): Relaxed (Lexi Grajeda RNC) Monitor Mode: External US (Lexi Taras, RNC) FHR Baseline Rate : 155 (Lexi Grajeda, RNC) Variability: Moderate 6-25 bpm (Lexi Grajeda, RNC) Accelerations: 15X15 (Lexi Grajeda, RNC) Decelerations: None (Lexi Grajeda, RNC) Datetime: 11/18/2016 14:03 Pain Type: Pressure (Lexi Grajeda, RNC) Pain Location: Abdomen (Lexi Grajeda, RNC) Pain Relief Measures: Comfort Measures (Lexi Grajeda, RNC) Pain Coping: Breathing Through Contractions (Lexi Grajeda, RNC) Patient Position/Activity: Left Extreme; Peanut Ball (Lexi Grajeda, RNC) LaborFlag: Antepartum (QS system process) Datetime: 11/18/2016 14:00 Monitor Mode: External; Palpation (Lexi Grajeda, RNC) Frequency (min): 3-4 (Lexi Grajeda, RNC) Quality: Moderate to Strong (Lexi Grajeda, RNC) Duration (sec): 50-90 (Lexi Grajeda, RNC) Duration Criteria: Less than Two 120 Second Contractions (Lexi Taras, RNC) Pattern: Normal: <= 5 Contractions in 10 Minutes (Lexi Taras, RNC) Resting Tone (Palpate): Relaxed (Lexi Taras, RNC) Monitor Mode: External US (Elxi Taras, RNC) FHR Baseline Rate : 150 (Lexi Taras, RNC) Variability: Moderate 6-25 bpm (Lexi Taras, RNC) Accelerations: 15X15 (Lexi Taras, RNC) Decelerations: None (Lexi Taras, RNC) Datetime: 11/18/2016 13:57 NBP Sys/Leanne/Mean (mmHg): 139 (QS system process) : 76 (QS system process) : 100 (QS system process) Pulse: 81 (QS system process) Respirations: 17 (Lexi Taras, RNC) Temperature (F): 98.2 (Lexi Taras, RNC) Temperature (C): 36.8 (QS system process) Temperature Route: Oral (Lexi Taras, RNC) LaborFlag: Antepartum (QS system process) Datetime: 11/18/2016 13:53 NBP Sys/Leanne/Mean (mmHg): 134 (QS system process) : 79 (QS system process) : 98 (QS system process) Pulse: 83 (QS system process) LaborFlag: Antepartum (QS system process) Datetime: 11/18/2016 13:49 NBP Sys/Leanne/Mean (mmHg): 135 (QS system process) : 81 (QS system process) : 102 (QS system process) Pulse: 85 (QS system process) LaborFlag: Antepartum (QS system process) Datetime: 11/18/2016 13:45 Monitor Mode: External; Palpation (YAKELIN Walton) Frequency (min): 2.5-3 (YAKELIN Walton) Quality: Mild/Moderate (YAKELIN Walton) Duration (sec): 60-90 (YAKELIN Walton) Duration Criteria: Less than Two 120 Second Contractions (YAKELIN Walton) Pattern: Normal: <= 5 Contractions in 10 Minutes (YAKELIN Walton) Resting Tone (Palpate): Relaxed (Lexi Grajeda, RNC) Monitor Mode: External US (Lexi Grajeda, RNC) FHR Baseline Rate : 150 (Lexi Grajeda, RNC) Variability: Moderate 6-25 bpm (Lexi Taras, RNC) Accelerations: 15X15 (Lexi Taras, RNC) Decelerations: None (Lexi Grajeda, RNC) Datetime: 11/18/2016 13:42 NBP Sys/Leanne/Mean (mmHg): 134 (QS system process) : 77 (QS system process) : 98 (QS system process) Pulse: 81 (QS system process) LaborFlag: Antepartum (QS system process) Datetime: 11/18/2016 13:39 NBP Sys/Leanne/Mean (mmHg): 133 (QS system process) : 80 (QS system process) : 100 (QS system process) Pulse: 92 (QS system process) LaborFlag: Antepartum (QS system process) Datetime: 11/18/2016 13:33 NBP Sys/Leanne/Mean (mmHg): 134 (QS system process) : 81 (QS system process) : 103 (QS system process) Pulse: 94 (QS system process) LaborFlag: Antepartum (QS system process) Datetime: 11/18/2016 13:30 Monitor Mode: External; Palpation (Lexi Taras, RNC) Frequency (min): 3-4 (Lexi Taras, RNC) Quality: Moderate to Strong (Lexi Taras, RNC) Duration (sec): 60-120 (Lexi Taras, RNC) Duration Criteria: Less than Two 120 Second Contractions (Lexi Taras, RNC) Pattern: Normal: <= 5 Contractions in 10 Minutes (Lexi Taras, RNC) Resting Tone (Palpate): Relaxed (Lexi Taras, RNC) Monitor Mode: External US (Lexi Taras, RNC) FHR Baseline Rate : 150 (Lexi Taras, RNC) Variability: Moderate 6-25 bpm (Lexi Taras, RNC) Accelerations: 15X15 (Lexi Taras, RNC) Decelerations: None (Lexi Taras, RNC) Datetime: 11/18/2016 13:28 NBP Sys/Leanne/Mean (mmHg): 133 (QS system process) : 78 (QS system process) : 97 (QS system process) Pulse: 83 (QS system process) LaborFlag: Antepartum (QS system process) Datetime: 11/18/2016 13:23 NBP Sys/Leanne/Mean (mmHg): 136 (QS system process) : 78 (QS system process) : 100 (QS system process) Pulse: 87 (QS system process) LaborFlag: Antepartum (QS system process) Datetime: 11/18/2016 13:18 NBP Sys/Leanne/Mean (mmHg): 131 (QS system process) : 74 (QS system process) : 96 (QS system process) Pulse: 81 (QS system process) LaborFlag: Antepartum (QS system process) Datetime: 11/18/2016 13:15 Monitor Mode: External; Palpation (Lexi Taras, RNC) Frequency (min): 2-3.5 (Lexi Taras, RNC) Quality: Mild/Moderate (Lexi Taras, RNC) Duration (sec): 60-90 (Lexi Taras, RNC) Duration Criteria: Less than Two 120 Second Contractions (Lexi Taras, RNC) Pattern: Normal: <= 5 Contractions in 10 Minutes (Lexi Taras, RNC) Resting Tone (Palpate): Relaxed (Lexi Taras, RNC) Monitor Mode: External US (Lexi Taras, RNC) FHR Baseline Rate : 145 (Lexi Taras, RNC) Variability: Moderate 6-25 bpm (Lexi Taras, RNC) Accelerations: 15X15 (Lexi Taras, RNC) Decelerations: None (Lexi Taras, RNC) Datetime: 11/18/2016 13:12 NBP Sys/Leanne/Mean (mmHg): 123 (QS system process) : 72 (QS system process) : 91 (QS system process) Pulse: 88 (QS system process) LaborFlag: Antepartum (QS system process) Datetime: 11/18/2016 13:07 NBP Sys/Leanne/Mean (mmHg): 126 (QS system process) : 72 (QS system process) : 93 (QS system process) Pulse: 86 (QS system process) LaborFlag: Antepartum (QS system process) Datetime: 11/18/2016 13:03 NBP Sys/Leanne/Mean (mmHg): 133 (QS system process) : 78 (QS system process) : 99 (QS system process) Pulse: 84 (QS system process) LaborFlag: Antepartum (QS system process) Datetime: 11/18/2016 13:00 Monitor Mode: External; Palpation (Lexi Taras, RNC) Frequency (min): 2-3 (Lexi Taras, RNC) Quality: Moderate to Strong (Lexi Taras, RNC) Duration (sec): 60-90 (Lexi Taras, RNC) Duration Criteria: Less than Two 120 Second Contractions (Lexi Taras, RNC) Pattern: Normal: <= 5 Contractions in 10 Minutes (Lexi Taras, RNC) Resting Tone (Palpate): Relaxed (Lexi Taras, RNC) Contraction Comments: Contractions coupling noted (Lexi Taras, RNC) Monitor Mode: External US (Lexi Taras, RNC) FHR Baseline Rate : 150 (Lexi Taras, RNC) Variability: Moderate 6-25 bpm (Lexi Taras, RNC) Accelerations: None (Lexi Taras, RNC) Decelerations: None (Lexi Taras, RNC) Datetime: 11/18/2016 12:57 NBP Sys/Leanne/Mean (mmHg): 132 (QS system process) : 76 (QS system process) : 98 (QS system process) Pulse: 87 (QS system process) LaborFlag: Antepartum (QS system process) Datetime: 11/18/2016 12:54 NBP Sys/Leanne/Mean (mmHg): 141 (QS system process) : 83 (QS system process) : 106 (QS system process) Pulse: 83 (QS system process) LaborFlag: Antepartum (QS system process) Datetime: 11/18/2016 12:47 NBP Sys/Leanne/Mean (mmHg): 149 (QS system process) : 74 (QS system process) : 98 (QS system process) Pulse: 88 (QS system process) LaborFlag: Antepartum (QS system process) Datetime: 11/18/2016 12:45 NBP Sys/Leanne/Mean (mmHg): 124 (QS system process) : 74 (QS system process) : 92 (QS system process) Monitor Mode: External; Palpation (Lexi Taras, RNC) Frequency (min): 2-4 (Lexi Taras, RNC) Quality: Moderate to Strong (Lexi Taras, RNC) Duration (sec): 60-90 (Lexi Taras, RNC) Duration Criteria: Less than Two 120 Second Contractions (Lexi Taras, RNC) Pattern: Normal: <= 5 Contractions in 10 Minutes (Lexi Taras, RNC) Resting Tone (Palpate): Relaxed (Lexi Taras, RNC) Monitor Mode: External US (Lexi Taras, RNC) FHR Baseline Rate : 150 (Lexi Taras, RNC) Variability: Moderate 6-25 bpm (Lexi Taras, RNC) Accelerations: 15X15 (Lexi Taras, RNC) Decelerations: None (Lexi Taras, RNC) LaborFlag: Antepartum (QS system process) Datetime: 11/18/2016 12:44 Medication Comments: Ephedrine 10 mg IVP (Lexi Taras, RNC) Anesthesia Interventions Other: Ephedrine (Lexi Taras, RNC) Datetime: 11/18/2016 12:43 NBP Sys/Leanne/Mean (mmHg): 129 (QS system process) : 71 (QS system process) : 95 (QS system process) Pulse: 85 (QS system process) LaborFlag: Antepartum (QS system process) Datetime: 11/18/2016 12:41 NBP Sys/Leanne/Mean (mmHg): 135 (QS system process) : 77 (QS system process) : 100 (QS system process) Pulse: 82 (QS system process) LaborFlag: Antepartum (QS system process) Datetime: 11/18/2016 12:40 I/O Interventions: Carlisle Cath Inserted (Lexi Taras, RNC) Datetime: 11/18/2016 12:39 NBP Sys/Leanne/Mean (mmHg): 131 (QS system process) : 66 (QS system process) : 93 (QS system process) Pulse: 86 (QS system process) LaborFlag: Antepartum (QS system process) Datetime: 11/18/2016 12:37 NBP Sys/Leanne/Mean (mmHg): 136 (QS system process) : 75 (QS system process) : 100 (QS system process) Pulse: 80 (QS system process) Respirations: 17 (YAKELIN Walton) Temperature (F): 98.2 (YAKELIN Walton) Temperature (C): 36.8 (QS system process) Temperature Route: Oral (YAKELIN Walton) LaborFlag: Antepartum (QS system process) Datetime: 11/18/2016 12:35 NBP Sys/Leanne/Mean (mmHg): 135 (QS system process) : 75 (QS system process) : 97 (QS system process) Pulse: 83 (QS system process) Epidural Procedure Other: Pump Started (YAKELIN Walton) Anesthesia Level Check: T10- Umbilicus (YAKELIN Walton) LaborFlag: Antepartum (QS system process) Datetime: 11/18/2016 12:30 Contraction Comments: Unable to document d/t pt sitting for Epidural placement. (Lexi Grajeda [facility]) Comments: Unable to document d/t pt sitting for Epidural placement. (Lexi Grajeda [facility]) Datetime: 11/18/2016 12:29 NBP Sys/Leanne/Mean (mmHg): 137 (QS system process) : 75 (QS system process) : 98 (QS system process) Pulse: 98 (QS system process) LaborFlag: Antepartum (QS system process) Datetime: 11/18/2016 12:27 NBP Sys/Leanne/Mean (mmHg): 136 (QS system process) : 78 (QS system process) : 102 (QS system process) Pulse: 90 (QS system process) LaborFlag: Antepartum (QS system process) Datetime: 11/18/2016 12:26 Epidural Procedure: Cath Placed; Test Dose (Lexi Taras, RNC) Datetime: 11/18/2016 12:23 Pulse: 95 (QS system process) SpO2 (%): 100 (QS system process) LaborFlag: Antepartum (QS system process) Datetime: 11/18/2016 12:21 Procedure Verify: Correct Patient Identity; Correct Side and Site are Marked; Accurate Procedure Consent Form; Agreement on Procedure to be Done; Correct Patient Position; Relevant Images and Results are Properly Labeled and Displayed; Addressed Need to Administer Antibiotics or Fluids for Irrigation; Safety Precautions Based on Patient History or Medication Use (YAKELIN Walton) Epidural Positioning: Sitting (YAKELIN Walton) Anesthesia Comments: Dr. Hernandez at for Epidural placement. (YAKELIN Walton) Datetime: 11/18/2016 12:16 Anesthesia Comments: Dr. Hernandez notified of pt's desire for Epidural. (YAKELIN Walton) Datetime: 11/18/2016 12:15 Monitor Mode: External; Palpation (Lexi Taras, RNC) Frequency (min): 2-4 (Lexi Taras, RNC) Quality: Mild/Moderate (Lexi Taras, RNC) Duration (sec): 50-80 (Lexi Taras, RNC) Duration Criteria: Less than Two 120 Second Contractions (Lexi Taras, RNC) Pattern: Normal: <= 5 Contractions in 10 Minutes (Lexi Taras, RNC) Resting Tone (Palpate): Relaxed (Lexi Taras, RNC) Monitor Mode: External US (Lexi Taras, RNC) FHR Baseline Rate : 140 (Lexi Taras, RNC) Variability: Moderate 6-25 bpm (Lexi Taras, RNC) Accelerations: 15X15 (Lexi Taras, RNC) Decelerations: None (Lexi Taras, RNC) Datetime: 11/18/2016 12:13 Antibiotics: Penicillin IV (Units) @ 2.5 [place] Units (Lexi Taras, RNC) Datetime: 11/18/2016 12:00 Monitor Mode: External; Palpation (Lexi Taras, RNC) Frequency (min): 5-7 (Lexi Taras, RNC) Quality: Mild/Moderate (Lexi Taras, RNC) Duration (sec): 60-90 (Lexi Taras, RNC) Duration Criteria: Less than Two 120 Second Contractions (Lexi Taras, RNC) Pattern: Normal: <= 5 Contractions in 10 Minutes (Lexi Taras, RNC) Resting Tone (Palpate): Relaxed (Lexi Taras, RNC) Monitor Mode: External US (Lexi Taras, RNC) FHR Baseline Rate : 145 (Lexi Taras, RNC) Variability: Moderate 6-25 bpm (Lexi Taras, RNC) Accelerations: None (Lexi Taras, RNC) Decelerations: None (Lexi Taras, RNC) Datetime: 11/18/2016 11:45 Monitor Mode: External; Palpation (Lexi Taras, RNC) Frequency (min): 2-4 (Lexi Taras, RNC) Quality: Mild/Moderate (Lexi Taras, RNC) Duration (sec): 60-90 (Lexi Taras, RNC) Duration Criteria: Less than Two 120 Second Contractions (Lexi Taras, RNC) Pattern: Normal: <= 5 Contractions in 10 Minutes (Lexi Taras, RNC) Resting Tone (Palpate): Relaxed (Lexi Taras, RNC) Monitor Mode: External US (Lexi Taras, RNC) FHR Baseline Rate : 145 (Lexi Taras, RNC) Variability: Moderate 6-25 bpm (Lexi Taras, RNC) Accelerations: 15X15 (Lexi Taras, RNC) Decelerations: None (Lexi Taras, RNC) Datetime: 11/18/2016 11:40 Pain Scale: 4 (Lexi Taras, RNC) Pain Presence: Intermittent (Lexi Taras, RNC) Pain Type: Cramping (Lexi Taras, RNC) Pain Location: Abdomen (Lexi Taras, RNC) Pain Coping: Breathing Through Contractions; Requesting Pain Medication or Epidural (Lexi Taras, RNC) LaborFlag: Antepartum (QS system process) Datetime: 11/18/2016 11:30 Monitor Mode: External; Palpation (Lexi Taras, RNC) Frequency (min): 2-4 (Lexi Taras, RNC) Quality: Mild (Lexi Taras, RNC) Duration (sec): 50-80 (Lexi Taras, RNC) Duration Criteria: Less than Two 120 Second Contractions (Lexi Taras, RNC) Pattern: Normal: <= 5 Contractions in 10 Minutes (Lexi Taras, RNC) Resting Tone (Palpate): Relaxed (Lexi Taras, RNC) Monitor Mode: External US (Lexi Taras, RNC) FHR Baseline Rate : 145 (Lexi Taras, RNC) Variability: Moderate 6-25 bpm (Lexi Taras, RNC) Accelerations: 15X15 (Lexi Taras, RNC) Decelerations: None (Lexi Taras, RNC) Datetime: 11/18/2016 11:15 Monitor Mode: External; Palpation (Lexi Taras, RNC) Frequency (min): 3-5 (Lexi Taras, RNC) Quality: Mild/Moderate (Lexi Taras, RNC) Duration (sec): 60-90 (Lexi Taras, RNC) Duration Criteria: Less than Two 120 Second Contractions (Lexi Taras, RNC) Pattern: Normal: <= 5 Contractions in 10 Minutes (Lexi Taras, RNC) Resting Tone (Palpate): Relaxed (Lexi Taras, RNC) Monitor Mode: External US (Lexi Taras, RNC) FHR Baseline Rate : 150 (Lexi Taras, RNC) Variability: Moderate 6-25 bpm (Lexi Taras, RNC) Accelerations: 15X15 (Lexi Taras, RNC) Decelerations: None (Lexi Taras, RNC) Datetime: 11/18/2016 11:00 Monitor Mode: External; Palpation (Lexi Taras, RNC) Frequency (min): 3-5 (Lexi Taras, RNC) Quality: Mild/Moderate (Lexi Taras, RNC) Duration (sec): 60-90 (Lexi Taras, RNC) Duration Criteria: Less than Two 120 Second Contractions (Lexi Taras, RNC) Pattern: Normal: <= 5 Contractions in 10 Minutes (Lexi Taras, RNC) Resting Tone (Palpate): Relaxed (Lexi Taras, RNC) Monitor Mode: External US (Lexi Taras, RNC) FHR Baseline Rate : 145 (Lexi Taras, RNC) Variability: Moderate 6-25 bpm (Lexi Taras, RNC) Accelerations: 15X15 (Lexi Taras, RNC) Decelerations: None (Lexi Taras, RNC) Datetime: 11/18/2016 10:45 Monitor Mode: External; Palpation (Lexi Taras, RNC) Frequency (min): 2.5-4 (Lexi Taras, RNC) Quality: Mild/Moderate (Lexi Taras, RNC) Duration (sec): 60-90 (Lexi Taras, RNC) Duration Criteria: Less than Two 120 Second Contractions (Lexi Taras, RNC) Pattern: Normal: <= 5 Contractions in 10 Minutes (Lexi Taras, RNC) Resting Tone (Palpate): Relaxed (Lexi Taras, RNC) Monitor Mode: External US (Lexi Taras, RNC) FHR Baseline Rate : 145 (Lexi Taras, RNC) Variability: Moderate 6-25 bpm (Lexi Taras, RNC) Accelerations: 15X15 (Lexi Taras, RNC) Decelerations: None (Leix Taras, RNC) Datetime: 11/18/2016 10:30 Monitor Mode: External; Palpation (Lexi Taras, RNC) Frequency (min): 2.5-4 (Lexi Taras, RNC) Quality: Mild/Moderate (Lexi Taras, RNC) Duration (sec): 50-80 (Lexi Taras, RNC) Duration Criteria: Less than Two 120 Second Contractions (Lexi Taras, RNC) Pattern: Normal: <= 5 Contractions in 10 Minutes (Lexi Taras, RNC) Resting Tone (Palpate): Relaxed (Lexi Taras, RNC) Monitor Mode: External US (Lxei Taras, RNC) FHR Baseline Rate : 145 (Lexi Taras, RNC) Variability: Moderate 6-25 bpm (Lexi Taras, RNC) Accelerations: 15X15 (Lexi Taras, RNC) Decelerations: None (Lexi Taras, RNC) Pitocin (milliunit): Pitocin Increased to (milliunits) @ 6 (YAKELIN Walton) Datetime: 11/18/2016 10:24 NBP Sys/Leanne/Mean (mmHg): 128 (QS system process) : 78 (QS system process) : 98 (QS system process) Pulse: 82 (QS system process) LaborFlag: Antepartum (QS system process) Datetime: 11/18/2016 10:15 Respirations: 17 (YAKELIN Walton) Temperature (F): 98.6 (YAKELIN Walton) Temperature (C): 37.0 (QS system process) Temperature Route: Oral (YAKELIN Walton) Monitor Mode: External; Palpation (YAKELIN Walton) Frequency (min): 3-4 (YAKELIN Walton) Quality: Mild/Moderate (YAKELIN Walton) Duration (sec): 60-90 (YAKELIN Walton) Duration Criteria: Less than Two 120 Second Contractions (Lexi Grajeda RNC) Pattern: Normal: <= 5 Contractions in 10 Minutes (Lexi Grajeda, RNC) Resting Tone (Palpate): Relaxed (Lexi Grajeda RNC) Monitor Mode: External US (YAEKLIN Walton) FHR Baseline Rate : 140 (Lexi Grajeda, RNC) Variability: Moderate 6-25 bpm (Lexi Grajeda, RNC) Accelerations: 15X15 (Lexi Grajeda, RNC) Decelerations: None (Lexi Grajeda RNC) Pitocin (milliunit): Pitocin Increased to (milliunits) @ 4 (Lexi Grajeda RNC) LaborFlag: Antepartum (QS system process) Datetime: 11/18/2016 10:00 Monitor Mode: External; Palpation (YAKELIN Walton) Frequency (min): 6-7 (Lexi Grajeda RNC) Quality: Mild/Moderate (Lexi Grajeda RNC) Duration (sec): 60-120 (Lexi Grajeda RNC) Duration Criteria: Less than Two 120 Second Contractions (Lexi Grajeda RNC) Pattern: Normal: <= 5 Contractions in 10 Minutes (Lexi Grajeda, RNC) Resting Tone (Palpate): Relaxed (Lexi Grajeda RNC) Monitor Mode: External US (Lexi Grajeda RNAnnie) FHR Baseline Rate : 145 (Lexi Grajeda, RNC) Variability: Moderate 6-25 bpm (Lexi Grajeda, RNC) Accelerations: 15X15 (Lexi Grajeda, RNC) Decelerations: None (Lexi Grajeda RNC) Pitocin (milliunit): Pitocin Started (milliunits) @ 2; Pitocin 20 Units in 1000ml NS (YAKELIN Walton) Datetime: 11/18/2016 09:47 Dilatation (cm): 3.0 (YAKELIN Walton) Effacement (%): 90 (YAKELIN Walton) Station: -2 (YAKELIN Walton) Exam by: Moni Chavez CNM (YAKELIN Walton) Datetime: 11/18/2016 09:30 Monitor Mode: External; Palpation (YAKELIN Walton) Frequency (min): 4-7 (YAKELIN Walton) Quality: Mild/Moderate (YAKELIN Walton) Duration (sec): 60-120 (YAKELIN Walton) Duration Criteria: Less than Two 120 Second Contractions (YAKELIN Walton) Pattern: Normal: <= 5 Contractions in 10 Minutes (YAKELIN Walton) Resting Tone (Palpate): Relaxed (YAKELIN Walton) Monitor Mode: External US (Lexi Grajeda, RNC) FHR Baseline Rate : 140 (Lexi Grajeda, RNC) Variability: Moderate 6-25 bpm (Lexi Taras, RNC) Accelerations: 15X15 (Lexi Grajeda, RNC) Decelerations: None (Lexi Grajeda, RNC) Datetime: 11/18/2016 09:09 NBP Sys/Leanne/Mean (mmHg): 134 (QS system process) : 86 (QS system process) : 105 (QS system process) Pulse: 82 (QS system process) LaborFlag: Antepartum (QS system process) Datetime: 11/18/2016 09:07 Monitor Interventions for FHR: Ultrasound Adjusted (Lexi Grajeda, RNC) Datetime: 11/18/2016 09:00 Monitor Mode: External; Palpation (Lexi Taras, RNC) Frequency (min): 3-5 (Lexi Taras, RNC) Quality: Mild/Moderate (Lexi Taras, RNC) Duration (sec): 60-90 (Lexi Taras, RNC) Duration Criteria: Less than Two 120 Second Contractions (Lexi Taras, RNC) Pattern: Normal: <= 5 Contractions in 10 Minutes (Lexi Taras, RNC) Resting Tone (Palpate): Relaxed (Lexi Taras, RNC) Monitor Mode: External US (Lexi Taras, RNC) FHR Baseline Rate : 145 (Lexi Taras, RNC) Variability: Moderate 6-25 bpm (Lexi Taras, RNC) Accelerations: 15X15 (Lexi Taras, RNC) Decelerations: None (Lexi Taras, RNC) Datetime: 11/18/2016 08:37 Patient Position/Activity: Birthing Ball (Lexi Taras, RNC) Datetime: 11/18/2016 08:36 Patient Care Comments: Pt back to bed (Lexi Taras, RNC) Datetime: 11/18/2016 08:30 Monitor Mode: External; Palpation (Lexi Taras, RNC) Frequency (min): 7-9 (Lexi Taras, RNC) Quality: Mild/Moderate (Lexi Taras, RNC) Duration (sec): 60-90 (Lexi Taras, RNC) Duration Criteria: Less than Two 120 Second Contractions (Lexi Taras, RNC) Pattern: Normal: <= 5 Contractions in 10 Minutes (Lexi Taras, RNC) Resting Tone (Palpate): Relaxed (Lexi Taras, RNC) Monitor Mode: External US (Lexi Taras, RNC) FHR Baseline Rate : 135 (Lexi Taras, RNC) Variability: Moderate 6-25 bpm (Lexi Taras, RNC) Accelerations: 15X15 (Lexi Taras, RNC) Decelerations: None (Lexi Taras, RNC) Datetime: 11/18/2016 08:22 I/O Interventions: Up to BR (Lexi Taras, RNC) Datetime: 11/18/2016 07:59 Monitor Mode: External (Antonella Marlatt, RN) Frequency (min): 2-6 (Antonella Marlatt, RN) Quality: Mild (Antonella Marlatt, RN) Duration (sec): 50-90 (Antonella Marlatt, RN) Resting Tone (Palpate): Relaxed (Antonella Marlatt, RN) Monitor Mode: External US (Antonella Marlatt, RN) FHR Baseline Rate : 140 (Antonella Marlatt, RN) Variability: Moderate 6-25 bpm (Antonella Marlatt, RN) Accelerations: 15X15 (Antonella Marlatt, RN) Decelerations: None (Antonella Marlatt, RN) Datetime: 11/18/2016 07:55 Antibiotics: Start Antibiotics; Penicillin IV (Units) @ 5 million (Lexi Grajeda, [facility]) LaborFlag: Antepartum (QS system process) Datetime: 11/18/2016 07:54 LaborFlag: Antepartum (QS system process) Datetime: 11/18/2016 07:30 Monitor Mode: External; Palpation (Antonella Romero RN) Frequency (min): 2.5-7.5 (Antonella Romero RN) Quality: Mild (Antonella Romero RN) Duration (sec): 60-150 (Antonella Romero RN) Resting Tone (Palpate): Relaxed (Antonella Romero RN) Monitor Mode: External US (Antonella Romero RN) FHR Baseline Rate : 140 (Antonella Romero RN) Variability: Moderate 6-25 bpm (Antonella Romero RN) Accelerations: 15X15 (Antonella Romero RN) Decelerations: Early (Antonella Romero RN) Datetime: 11/18/2016 07:25 LaborFlag: Antepartum (QS system process) Datetime: 11/18/2016 07:02 LaborFlag: Antepartum (QS system process) Datetime: 11/18/2016 06:55 Temperature (C): 37.4 (QS system process) LaborFlag: Antepartum (QS system process)
[2016-11-18] MEDS ORDERED: PROMETHAZINE HCL INJ 25 MG/1 ML VIAL ONE (20:14)
--- NOTE | 2016-11-18 20:30 | Operative Report ---
Operative Report DATE OF SURGERY: 11/18/16 PREOPERATIVE DIAGNOSIS: Cephalopelvic disproportion POSTOPERATIVE DIAGNOSIS: Same OPERATION: Primary via low transverse uterine incision SURGEON: RICKY HERNANDEZ ANESTHESIA: Epidural TISSUE REMOVED OR ALTERED: Placenta COMPLICATIONS: None ESTIMATED BLOOD LOSS: 250 mL INTRAOPERATIVE FINDINGS: Viable female Apgars 7 and 9 weight 9 pounds PROCEDURE: Patient was taken to the OR and placed in supine position after her spinal anesthesia. She is prepared and draped in sterile fashion. Carlisle was placed for drainage of the bladder. Low transverse incision was made and carried down the level of the fascia. The fascial incision was made with knife and extended bilaterally with curved Murillo scissors. The fascia was off the rectus muscles using sharp and blunt dissection. The rectus muscles are in the midline. The peritoneum was entered without incident. Bladder blade was placed in uterine segment was identified. A low transverse incision was made creating a bladder flap. Bladder blade was placed low transverse uterine incision was made with the knife and extended with fingertips. The baby was delivered with some fundal pressure. Mouth and nose were suctioned free. The cord is doubly clamped and cut. Baby is passed off to the automotive parts coordinator in attendance. The placenta was manually extracted with trailing membranes. The uterus was externalized wrapped in a moist lap sponge. Uterine contents wiped free. Uterus was closed with a running locking layer of 0 chromic suture using the second layer to imbricate the first completing a double layer closure of the uterus. The serosa was closed with a running 2-0 chromic stitch. The pelvis was irrigated and suctioned free of fluid the uterus was replaced in the abdomen. The abdominal wall peritoneum was closed with running 2-0 chromic stitch. Fascia was closed with a running 0 Vicryl in 2 segments. Shiva's layer was brought together with 0 plain gut stitch and the skin was closed with running subcuticular 4-0 undyed Vicryl stitch. The wound was dressed mother and baby did well.
--- NOTE | 2016-11-18 22:40 | Admission Physical ---
Datetime Report Generated by CPN: 11/18/2016 22:40 CURRENT ADMISSION Chief Complaint: Uterine Contractions Indication for Induction: Post Dates Admit Plan: Initiate Labor Augmentation Protocol ALLERGIES Medication Allergies: No Medication Allergies: No Known Allergies (11/18/2016) Medication Allergies: No Known Allergies (03/29/2016) Latex: No Latex Allergies Food Allergies: carrots Environmental Allergies: no OBSTETRICAL HISTORY EDC: 11/11/2016 00:00 : 2 Para: 0 Term: 0 : 0 SAB: 1 IAB: 0 Ectopic: 0 Livin Cesareans: 0 VBACs: 0 Multiple Births: 0 Gestational Diabetes: No Rh Sensitization: No Incompetent Cervix: No GERBER: No Infertility: No ART Treatment: No Uterine Anomaly: No IUGR: No Hx Previous C/S: No Macrosomia: No Hx Loss/Stillborn: No PIH: No Hx : No Placenta Previa/Abruption: No Depression/PP Depression: No PTL/PROM: No Post Hemorrhage: No Current Procedures: Ultrasound SEE RECORDS Alcohol: No Marijuana : No Cocaine: No Other Illicit Drugs: No Cigarettes: Former Smoker. [id number] MEDICAL HISTORY Diabetes: No Blood Transfusion: No Pulmonary Disease (Asthma, TB): No Breast Disease: No Hypertension: No Sewer Surgery: No Heart Disease: No Hosp/Surgery: No Autoimmune Disorder: No Anesthetic Complications: No Kidney Disease: No Abnormal Pap Smear: No Neuro/Epilepsy: No Psychiatric Disorders: No Other Medical Diseases: No Hepatitis/Liver Disease: No Significant Family History: No Varicosities/Phlebitis: No Trauma/Violence : No Thyroid Dysfunction: No INFECTIOUS HISTORY Gonorrhea: No Genital Herpes: No Chlamydia: No Tuberculosis: No Syphilis: No Hepatitis: No HIV/AIDS Exposure: No Rash or Viral Illness: No HPV: No PHYSICAL EXAM General: Normal HEENT: Normal Neurologic: Normal Thyroid: Normal Heart: Normal Lungs: Normal Breast: Normal Back: Normal Abdomen: Normal Genitourinary Exam: Normal Extremities: Normal DTRs: Normal Pelvic Type: Adequate Vital Signs: Reviewed VAGINAL EXAM Dilatation: 7 Dilatation: 3 Dilatation: 3 Effacement: 90 Effacement: 90 Effacement: 90 Station: -1 Station: -2 Station: -2 MEMBRANES Membranes: Ruptured Membranes: Ruptured Amniotic Fluid Color: Meconium, Particulate Amniotic Fluid Color: Clear Amniotic Fluid Color: Clear FETUS A EGA: 41.0 Monitoring: External US FHR- Baseline: 140 Accelerations: 10X10 Decelerations: None FHR Category: Category I Presentation: Vertex Admit Comment: 26 yo presents with SROM EDC 11/11/16 EGA 41 weeks history of sickle cell trait- fob negative gbs positive sve /-2 srom ctxs- irregular start pitocin gbs prophylaxis anticipate PLANS FOR LABOR AND DELIVERY Labor and Delivery: Plan Pain Management: Natural Feeding Preference: Breast Benefit of Breast Feed Discussed: Yes Circumcision: N/A INFORMED CONSENT Informed Consent Obtained: Vaginal Delivery; Risks, Benefits and Alternatives Discussed Informed Consent Obtained: Vaginal Delivery; Risks, Benefits and Alternatives Discussed Informed Consent Obtained: Vaginal Delivery; Risks, Benefits and Alternatives Discussed Assignment: Sary Alvarado MD Signature: with User ID: [email or web address] : with User ID: [email or web address]
--- NOTE | 2016-11-18 23:18 | Delivery Summary ---
Del Sum A-C Datetime Report Generated by CPN: 11/18/2016 23:18 ADMISSION DATA Chief Complaint: Uterine Contractions Indication for Induction: Post Dates Admission Impression: Term, Intrauterine Admit Provider Comments: 26 yo presents with SROM EDC 11/11/16 EGA 41 weeks history of sickle cell trait- fob negative gbs positive sve /2 srom ctxs- irregular start pitocin gbs prophylaxis anticipate DELIVERY PERSONNEL Delivery Doctor:: Sary Alvarado MD Anesthesiologist:: Mauricio Hernandez MD TELEGRAPHIC INSTRUMENT SUPERVISOR:: Iker Fonseca CRNA Labor and Delivery Nurse:: Yvonne Segal, RN MATERNAL INFORMATION Delivery Anesthesia: Epidural Medications After Delivery: Pitocin Drip 20 Units/1000ml NSS Estimated Blood Loss (ml): 500 Maternal Complications: Other Other Maternal Complications: failure to progress LABOR SUMMARY EDC: 11/11/2016 00:00 No. Babies in Womb: 1 Attempted: No Labor Anesthesia: Epidural LABOR INFORMATION Reason for Induction: Not Applicable Onset of Labor: 11/18/2016 14:59 Cervical Ripening Agents: Other Oxytocin: Augmentation Group B Beta Strep: Positive Antibiotics # of Doses: 3 Antibiotics Time of Last Dose: 1620 Name of Antibiotic Given: Penicillin Steroids Given: None Reason Steroids Not Administered: Not Applicable MEMBRANES Membranes Rupture Method: Spontaneous Rupture of Membranes: 11/18/2016 03:00 Length of Rupture (hr): 16.95 Amniotic Fluid Color: Moderate Meconium Amniotic Fluid Amount: Small Amniotic Fluid Odor: Normal STAGES OF LABOR Stage 3 hr: 0 Stage 3 min: 0 Total Time in Labor hr: 4 Total Time in Labor min: 58 VAGINAL DELIVERY Initial Vag Sponge Count: 20 Final Vag Sponge Count: 20 Sponge Count Correct: Yes Sharps Count Correct: Yes CSECTION DELIVERY Primary Indication: Failure of Descent CSection Incidence: Primary CSection Incision: Lower Uterine Transverse BABY A INFORMATION Infant Delivery Date/Time: 11/18/2016 19:57 Method of Delivery: Born in Route : No : N/A Forceps: N/A Vacuum Extraction: N/A Shoulder Dystocia : No PRESENTATION/POSITION BABY A Presentation: Cephalic Cephalic Presentation: Vertex Breech Presentation: N/A PLACENTA INFORMATION BABY A Placenta Delivery Time : 11/18/2016 19:57 Placenta Method of Delivery: Manual Removal Placenta Status: Delivered SCORES BABY A Heart Rate 1 min: >100 bpm Resp Effort 1 min: Good Cry Reflex Irritability 1 min: Grimace Muscle Tone 1 min: Some Flexion of Extremities Color 1 min: Body Spelter, Extremities Blue Resuscitation Effort 1 min: Tactile Stimulation SCORE 1 MIN: 7 Heart Rate 5 min: >100 bpm Resp Effort 5 min: Good Cry Reflex Irritability 5 min: Cough or Sneeze or Pulls Away Muscle Tone 5 min: Active Motion Color 5 min: Body Spelter, Extremities Blue SCORE 5 MIN: 9 INFANT INFORMATION BABY A Gestational Age at Delivery: 41.0 Gestational Status: Late Term- 41- 41.6 Weeks Infant Outcome : Liveborn Infant Condition : Stable Sex: Female WEIGHT/LENGTH BABY A Infant Birthweight (gm): 4050 Weight (lb): 8 Infant Weight (oz): 15 Length (in): 21.00 Infant Length (cm): 53.34 CORD INFORMATION BABY A No. Cord Vessels: 3 Nuchal Cord : N/A Cord Blood Taken: Yes-For Eval (Mom's Blood Type - or O+) Infant Suction: None ASSESSMENT BABY A Infant Complications: None Physical Findings at Delivery: Within Normal Limits Infant Respirations: Appears Normal Skin to Skin: Yes Skin to Skin Time (min): 30 BABY B INFORMATION : N/A
[2016-11-18] MEDS: KETOROLAC TROMETHAMINE INJ/PF 30 MG/1 ML SDV IV SCH (23:32)
[2016-11-19] MEDS: KETOROLAC TROMETHAMINE INJ/PF 30 MG/1 ML SDV IV SCH ×2 (05:25→14:18)
[2016-11-19] MEDS: OXYCODONE-ACETAMINOPHEN 5-325 MG TABLET PO PRN ×2 (05:27→12:46)
--- NOTE | 2016-11-19 07:01 | L&D Flow Sheet ---
LD Flowsheet Datetime Report Generated by CPN: 11/19/2016 07:00 Datetime: 11/18/2016 22:31 Pulse: 105 (QS system process) SpO2 (%): 100 (QS system process) Datetime: 11/18/2016 22:28 NBP Sys/Leanne/Mean (mmHg): 140 (QS system process) : 87 (QS system process) : 106 (QS system process) Pulse: 106 (QS system process) Temperature (F): 97.4 (Yvonne Ledgerwood, RN) Temperature (C): 36.3 (QS system process) Temperature Route: Oral ([facility], [facility]) Datetime: 11/18/2016 22:26 Pulse: 106 (QS system process) SpO2 (%): 100 (QS system process) Datetime: 11/18/2016 22:21 Pulse: 110 (QS system process) SpO2 (%): 100 (QS system process) Datetime: 11/18/2016 22:16 Pulse: 109 (QS system process) SpO2 (%): 100 (QS system process) Datetime: 11/18/2016 22:11 Pulse: 109 (QS system process) SpO2 (%): 100 (QS system process) Datetime: 11/18/2016 22:10 NBP Sys/Leanne/Mean (mmHg): 139 (QS system process) : 82 (QS system process) : 105 (QS system process) Pulse: 105 (QS system process) Datetime: 11/18/2016 22:06 Pulse: 105 (QS system process) SpO2 (%): 100 (QS system process) Datetime: 11/18/2016 22:01 Pulse: 107 (QS system process) SpO2 (%): 100 (QS system process) Datetime: 11/18/2016 21:56 Pulse: 107 (QS system process) SpO2 (%): 97 (QS system process) Datetime: 11/18/2016 21:51 Pulse: 104 (QS system process) SpO2 (%): 100 (QS system process) Datetime: 11/18/2016 21:46 Pulse: 105 (QS system process) SpO2 (%): 100 (QS system process) Datetime: 11/18/2016 21:41 Pulse: 107 (QS system process) SpO2 (%): 98 (QS system process) Datetime: 11/18/2016 21:40 NBP Sys/Leanne/Mean (mmHg): 145 (QS system process) : 76 (QS system process) : 103 (QS system process) Pulse: 109 (QS system process) Datetime: 11/18/2016 21:36 Pulse: 105 (QS system process) SpO2 (%): 100 (QS system process) Datetime: 11/18/2016 21:35 Pain Scale: 0 (Annotations: pt is sleeping) (Yvonne Ledgerwood, RN) Datetime: 11/18/2016 21:31 Pulse: 107 (QS system process) SpO2 (%): 100 (QS system process) Datetime: 11/18/2016 21:26 Pulse: 115 (QS system process) SpO2 (%): 100 (QS system process) Datetime: 11/18/2016 21:21 Pulse: 119 (QS system process) SpO2 (%): 98 (QS system process) Datetime: 11/18/2016 21:16 Pulse: 112 (QS system process) SpO2 (%): 97 (QS system process) Datetime: 11/18/2016 21:11 Pulse: 112 (QS system process) SpO2 (%): 98 (QS system process) Datetime: 11/18/2016 21:10 NBP Sys/Leanne/Mean (mmHg): 140 (QS system process) : 77 (QS system process) : 101 (QS system process) Pulse: 107 (QS system process) Respirations: 14 (Yvonne Ledgerwood, RN) Datetime: 11/18/2016 21:06 Pulse: 111 (QS system process) SpO2 (%): 98 (QS system process) Datetime: 11/18/2016 21:01 Pulse: 116 (QS system process) SpO2 (%): 98 (QS system process) Datetime: 11/18/2016 20:55 Pulse: 114 (QS system process) SpO2 (%): 97 (QS system process) Datetime: 11/18/2016 20:50 Pulse: 115 (QS system process) SpO2 (%): 98 (QS system process) Datetime: 11/18/2016 20:45 NBP Sys/Leanne/Mean (mmHg): 147 (QS system process) : 77 (QS system process) : 99 (QS system process) Pulse: 117 (QS system process) Pulse: 112 (QS system process) SpO2 (%): 99 (QS system process) Datetime: 11/18/2016 20:40 NBP Sys/Leanne/Mean (mmHg): 139 (QS system process) : 104 (QS system process) : 118 (QS system process) Pulse: 108 (QS system process) Pulse: 121 (QS system process) Pulse: 123 (QS system process) Respirations: 14 (Yvonne Segal RN) SpO2 (%): 94 (QS system process) SpO2 (%): 81 (QS system process) Datetime: 11/18/2016 20:35 Stage of : Recovery (Yvonne Segal RN) Temperature (F): 99.2 (Yvonne Segal RN) Temperature (C): 37.3 (QS system process) Temperature Route: Oral (Yvonne Segal RN) Pain Scale: 0 (Annotations: pt is sleeping) (Yvonne Segal RN) Datetime: 11/18/2016 19:32 NBP Sys/Leanne/Mean (mmHg): 147 (QS system process) : 72 (QS system process) : 99 (QS system process) Pulse: 96 (QS system process) LaborFlag: Antepartum (QS system process) Datetime: 11/18/2016 19:30 Monitor Mode: External; Palpation (YAKELIN Walton) Frequency (min): 2-2.5 (YAKELIN Walton) Quality: Mild/Moderate (YAKELIN Walton) Duration (sec): 60-90 (YAKELIN Walton) Duration Criteria: Less than Two 120 Second Contractions (Lexi Grajeda, RNC) Pattern: Normal: <= 5 Contractions in 10 Minutes (Lexi Grajeda, RNC) Resting Tone (Palpate): Relaxed (Lexi Grajeda, RNC) Monitor Mode: External US (Lexi Grajeda, RNC) FHR Baseline Rate : 150 (Lexi Grajeda, RNC) Variability: Moderate 6-25 bpm (Lexi Taras, RNC) Accelerations: 15X15 (Lexi Grajeda, RNC) Decelerations: None (Lexi Grajeda, RNC) Anesthesia Comments: D Fonseca WINE SPECIALIST at bedside bolusing epidural (Zonia Rasmussen, RN) Datetime: 11/18/2016 19:27 Communication Comments: Report to Kareen Segal RN, Abigail Grajeda RNC. (Lexi Grajeda, RNC) Datetime: 11/18/2016 19:25 Communication Comments: report received from Abigail Grajeda RN (Yvonne Segla, RN) Datetime: 11/18/2016 19:16 NBP Sys/Leanne/Mean (mmHg): 131 (QS system process) : 77 (QS system process) : 97 (QS system process) Pulse: 115 (QS system process) LaborFlag: Antepartum (QS system process) Datetime: 11/18/2016 19:15 Monitor Mode: External; Palpation (YAKELIN Walton) Frequency (min): 2.5-4 (Lexi Grajeda RNC) Quality: Moderate to Strong (Lexi Grajeda RNC) Duration (sec): 60-90 (Lexi Grajeda RNC) Duration Criteria: Less than Two 120 Second Contractions (Lexi Grajeda RNC) Pattern: Normal: <= 5 Contractions in 10 Minutes (Lexi Grajeda RNC) Resting Tone (Palpate): Relaxed (Lexi Grajeda RNC) Monitor Mode: External US (YAKELIN Walton) FHR Baseline Rate : 155 (Lexi Grajeda RNC) Variability: Moderate 6-25 bpm (Lexi Grajeda RNC) Accelerations: 15X15 (Lexi Grajeda RNC) Decelerations: None (Lexi Grajeda RNC) Antibiotics: Ancef IV (Gm) @ 1 (Antonella Romero RN) Antiemetics/Antacids: Bicitra 15 ml PO (Antonella Romero RN) Datetime: 11/18/2016 19:06 Dilatation (cm): 9.0 (YAKELIN Walton) Effacement (%): 85 (YAKELIN Walton) Station: 0 (YAKELIN Walton) Exam by: Dr. Alvarado (YAKELIN Walton) Vaginal Exam Comments: Swollen anterior cervix per Dr. Alvarado (YAKELIN Walton) Communication Comments: C/S called (YAKELIN Walton) Datetime: 11/18/2016 19:00 NBP Sys/Leanne/Mean (mmHg): 132 (QS system process) : 66 (QS system process) : 92 (QS system process) Pulse: 96 (QS system process) Monitor Mode: External; Palpation (YAKELIN Walton) Frequency (min): 2.5-4 (YAKELIN Walton) Quality: Mild/Moderate (YAKELIN Walton) Duration (sec): 90-120 (YAKELIN Walton) Duration Criteria: Less than Two 120 Second Contractions (YAKELIN Walton) Pattern: Normal: <= 5 Contractions in 10 Minutes (YAKELIN Walton) Resting Tone (Palpate): Relaxed (YAKELIN Walton) Monitor Mode: External US (YAKELIN Walton) FHR Baseline Rate : 150 (YAKELIN Walton) Variability: Moderate 6-25 bpm (YAKELIN Walton) Accelerations: 15X15 (YAKELIN Walton) Decelerations: None (YAKELIN Walton) LaborFlag: Antepartum (QS system process)
[2016-11-19 07:08] LABS: HEMATOCRIT 27.8 % (36.0-47.0); HEMOGLOBIN 9.3 g/dL (12.0-15.5); HGB HCT DIFFERENCE 0.1; MEAN CORPUSCULAR HEMOGLOBIN 26.7 pg (27.0-33.4); MEAN CORPUSCULAR HGB CONC 33.5 g/dL (32.0-36.0); MEAN CORPUSCULAR VOLUME 80 fl (80-97); RED BLOOD COUNT 3.49 10^6/uL (3.72-5.28); RED CELL DISTRIBUTION WIDTH 15.3 % (11.5-14.0); WHITE BLOOD COUNT 14.3 10^3/uL (4.0-10.5)
--- NOTE | 2016-11-19 08:54 | PDOC PROGRESS REPORT ---
Subjective-OB Subjective: Post Delivery Day: 1 26 year old. Denies any needs at this time, states lochia is stable, pain is well controlled, voiding without difficulty, tolerating diet. Physical Exam (OB) Vital Signs: Temp Pulse Resp BP Pulse Ox 98.2 F 86 16 127/77 H 99 11/19/16 02:59 11/19/16 02:59 11/19/16 02:59 11/19/16 02:59 11/19/16 02:59 Intake & Output 11/18/16 11/19/16 11/20/16 06:59 06:59 06:59 Intake Total 1270 Output Total 900 Balance 370 Weight 86.75 kg - PIH/Pre-Eclampsia Headache: Absent Epigastric Pain: No Visual Changes: No - Dressing Removed: No Incision: Dressing, Well Approximated Closure Type: honeycomb - Lochia Lochia Amount: Scant < 10 ml Lochia Color: Rubra/Red - Abdomen Description: Soft Hernia Present: No Fundal Description: Firm Fundal Height: 1/u - 2/u Objective-Diagnostic Laboratory: 11/19/16 06:37 11/19/16 06:37 WBC 14.3 H RBC 3.49 L Hgb 9.3 L Hct 27.8 L MCV 80 MCH 26.7 L MCHC 33.5 RDW 15.3 H Plt Count 196 Assessment and Plan(PN) - Assessment and Plan (1) delivery delivered Is this a current diagnosis for this admission?: YesPlan: routine post-op care progressive ambulation advance diet as tolerated (2) Acute blood loss anemia Is this a current diagnosis for this admission?: YesPlan: ferrous sulfate increase dietary iron - Time Spent with Patient Time with patient: Less than 15 minutes Critical Time spent with patient: Less than 15 minutes Medications reviewed and adjusted accordingly: Yes - Disposition Anticipated Discharge: Home Within: within 24 hours
[2016-11-19] MEDS: DOCUSATE SODIUM 100 MG CAPSULE PO SCH ×2 (10:40→18:19)
[2016-11-19] MEDS: PRENATAL VITAMIN W-O CA NO5/FE FUMARATE/FA CAPSULE PO SCH (10:40)
[2016-11-19] MEDS ORDERED: DIBUCAINE 1% OINTMENT 28 GM PR PRN (13:01)
--- NOTE | 2016-11-19 18:01 | L&D Current Admission ---
Current Admit Datetime Report Generated by CPN: 11/19/2016 18:00 ADMISSION INFORMATION Current Admit Date/Time: 11/18/2016 07:58 (11/18/2016 07:02:YAKELIN Arango) Reason for Admission: Onset of Labor; Rupture of Membranes (11/18/2016 07:02:YAKELIN Arango) Chief Complaint: Contractions; Suspected Rupture of Membranes (11/18/2016 07:02:Alicia Rader RN) EGA per Dates: 41.0 (11/18/2016 07:02:QS system process) EGA per US: 41.0 (11/18/2016 07:02:QS system process) Method of Arrival: Wheelchair (11/18/2016 07:02:YAKELIN Arango) Admitted From: Home (11/18/2016 07:02:YAKELIN Arango) Reason for Induction: Not Applicable (11/18/2016 07:02:YAKELIN Arango) Records Available: Yes (11/18/2016 07:02:YAKELIN Arango) General Admission Information: Reviewed (11/18/2016 07:02:YAKELIN Arango) General Admission Reviewed By: Franklin HAMLIN (11/18/2016 07:02:YAKELIN Arango) BELONGINGS/ADVANCED DIRECTIVES Valuables/Personal Effects: None (11/18/2016 07:02:YAKELIN Arango) Disposition of Belongings: Kept with Patient (11/18/2016 07:02:YAKELIN Arango) Advance Direct for Healthcare: No, and Wants No Information (11/18/2016 07:02:YAKELIN Arango) Durable Power of Transportation Logistics Internship: No (11/18/2016 07:02:YAKELIN Arango) Living Will: No (11/18/2016 07:02:YAKELIN Arango) Organ Donor: No (11/18/2016 07:02:YAKELIN Arango) Pt Rights Information Given: Yes (11/18/2016 07:02:YAKELIN Arango) Pt Understands Pt Rights: Yes (11/18/2016 07:02:YAKELIN Arango) LEARNING ASSESSMENT Knowledge Level: Understands L_D Process; Understands Care Activities; Had Pre-Hospital Education; Understands Diagnosis (11/18/2016 07:02:YAKELIN Arango) Barriers to Learning: None; Visual Deficit (11/18/2016 07:02:YAKELIN Arango) Learning Readiness: Motivated (11/18/2016 07:02:YAKELIN Arango) Learns Best By: 1 to 1 Instruction; Reading; Videos; Group Discussion; Demonstration (11/18/2016 07:02:YAKELIN Arango) Learning Needs: Labor and Delivery Process; Pain Management; Symptoms to Report; Treatment Plan; Medication; Diagnosis; Nutrition; Equipment; Infant Care; Community Resources (11/18/2016 07:02:YAKELIN Arango) DOMESTIC VIOLANCE SCREENING Dom Viol Threatened/Hurt: No (11/18/2016 07:02:YAKELIN Arango) Hx of Abuse/Neglect past 2yrs: No (11/18/2016 07:02:YAKELIN Arango) Feel Unsafe Going Home: No (11/18/2016 07:02:YAKELIN Arango) Addt'l Observ Indicating Abuse: No (11/18/2016 07:02:YAKELIN Arango) Considered Personal Harm/Suicide: No (11/18/2016 07:02:YAKELIN Arango) NUTRITIONAL/FUNCTIONAL SCREENING Problem with Appetite >5 Days: No (11/18/2016 07:02:YAKELIN Arango) Chew/Swallow Difficulties: No (11/18/2016 07:02:YAKELIN Arango) Inappropriate Wt Gain/Loss: No (11/18/2016 07:02:YAKELIN Arango) Presence Skin Breakdown/Ulcer: No (11/18/2016 07:02:YAKELIN Arango) Special Diet: No (11/18/2016 07:02:YAKELIN Arango) Specify Diet: carrots (11/18/2016 07:02:YAKELIN Arango) Pt Requests Reel Hooker Visit: No (11/18/2016 07:02:YAKELIN Arango) Hx of Any of the Following?: N/A (11/18/2016 07:02:YAKELIN Arango) New Diagnosis of: N/A (11/18/2016 07:02:YAKELIN Arango) Requires Assist w/Ambulation: No (11/18/2016 07:02:YAKELIN Arango) Uses Assist Device to Ambulate: No (11/18/2016 07:02:YAKELIN Arango) Pt Requires Help w/ADL's: No (11/18/2016 07:02:YAKELIN Arango)
--- NOTE | 2016-11-19 18:01 | L&D General Admission ---
General Admit Datetime Report Generated by CPN: 11/19/2016 18:00 INFORMATION Patient Age: 26 (10/18/2016 16:46:QS system process) EDC: 11/11/2016 00:00 (11/18/2016 06:32:Alicia Rader RN) EDC per Ultrasound: 11/11/2016 00:00 (11/18/2016 06:32:Alicia Rader RN) : 2 (11/18/2016 06:32:Alicia Rader RN) Para: 0 (11/18/2016 06:32:Alicia Rader RN) Term: 0 (11/18/2016 06:32:YAKELIN Arango) : 0 (11/18/2016 06:32:YAKELIN Arango) Spontaneous Abortions: 1 (11/18/2016 06:32:YAKELIN Arango) Induced Abortions: 0 (11/18/2016 06:32:YAKELIN Arango) Livin (11/18/2016 06:32:YAKELIN Arango) Cesareans: 0 (11/18/2016 06:32:Na Lowe RNC) VBACs: 0 (11/18/2016 06:32:Na Michellence, RNC) Ectopic: 0 (11/18/2016 06:32:Na Michellence, RNC) Multiple Births: 0 (11/18/2016 06:32:Na Lowe, RNC) Baby, Number in Womb: 1 (11/18/2016 06:32:Na Michellence, RNC) CARE Primary Digital Forensics Investigator: [facility] (11/18/2016 06:32:YAKELIN Walton) Month of 1st Visit: march (11/18/2016 06:32:YAKELIN Arango) Adequate Care: Yes (11/18/2016 06:32:YAKELIN Walton) Prepregnancy Weight (lb): 145 (11/18/2016 06:32:YAKELIN Arango) Prepregnancy Weight (kg): 65.9 (11/18/2016 06:32:QS system process) Height (in): 64 (11/19/2016 12:18:QS system process) ALLERGIES Medication Allergy: No (11/18/2016 06:32:Lexi Grajeda RN) Medication Allergies: No Known Allergies (11/18/2016) (11/18/2016 06:33:QS system process) Latex Allergy: No Latex Allergies (11/18/2016 06:32:Lexi Grajeda RN) Food Allergies: carrots (11/18/2016 06:32:Na Martineznce, RNC) Environmental Allergies: no (11/18/2016 06:32:Na Bellavance, RNC) COMMUNICATION Primary Language: Cymro (11/18/2016 06:32:Lexi Grajeda, RNC) Communication Barrier(s): Visual deficit (11/18/2016 06:32:Na Michellence, RNC) Communication Needs: contacts (11/18/2016 06:32:Na Bellavance, RNC) DEMOGRAPHICS Address: [place] [address] (10/18/2016 16:46:QS system process) Zipcode: [phone] (10/18/2016 16:46:QS system process) Home (10/18/2016 16:46:QS system process) SSN: [id number] (10/18/2016 16:46:QS system process) Next of Kin Name: ÁNGELA SHAW (10/18/2016 16:46:QS system process) Next of Kin (10/18/2016 16:46:QS system process) Next of Kin Relationship: OR (10/18/2016 16:46:QS system process) Date of : 1990 (10/18/2016 16:46:QS system process) Marital Status: (10/18/2016 16:46:QS system process) Sex: Female (10/18/2016 16:46:QS system process) Race: (10/18/2016 16:46:QS system process) Ethnicity: Non- or (10/18/2016 16:46:QS system process) Jainism: None (10/18/2016 16:46:QS system process) DRUG AND ALCOHOL USE Alcohol: No (11/18/2016 06:32:YAKELIN Arango) Cigarettes: Former Smoker. [id number] (11/18/2016 06:32:YAKELIN Arango) Marijuana: No (11/18/2016 06:32:Na Bellavance, RNC) Cocaine: No (11/18/2016 06:32:Na Bellavance, RNC) Other Illicit Drugs: No (11/18/2016 06:32:Na Bellavance, RNC) VACCINE HISTORY Influenza Vaccine: Yes (11/18/2016 06:32:Na Bellavance, RNC) Influenza Date: 2013 (11/18/2016 06:32:Na Bellavance, RNC) Pneumococcal Vaccine: Uncertain (11/18/2016 06:32:Na Bellavance, RNC) Tetanus Vaccine: Yes (11/18/2016 06:32:Na Bellavance, RNC) Tetanus Date: 2013 (11/18/2016 06:32:Na Bellavance, RNC) Tdap Vaccine: Yes (11/18/2016 06:32:Na Bellavance, RNC) Tdap Date: 2013 (11/18/2016 06:32:Na Bellavance, RNC) Hepatitis B Vaccine: Yes (11/18/2016 06:32:Na Bellavance, RNC) Sales And Training Specialist: [facility] (11/18/2016 06:32:YAKELIN Arango) Feeding Preference: Breast (11/18/2016 06:32:YAKELIN Arango) Benefit of Breast Feed Discussed: Yes (11/18/2016 06:32:YAKELIN Arango) Circumcision: N/A (11/18/2016 06:32:YAKELIN Arango) Classes Attended: No (11/18/2016 06:32:YAKELIN Arango) Tubal Ligation: No (11/18/2016 06:32:YAKELIN Arango) Tubal Authorization Signed: N/A (11/18/2016 06:32:YAKELIN Arango) Consent: N/A (11/18/2016 06:32:YAKELIN Arango) Consent Signed: N/A (11/18/2016 06:32:YAKELIN Arango) Pain Management Plans: Natural (11/18/2016 06:32:YAKELIN Arango) Plans for Labor and Delivery: Plan (11/18/2016 06:32:YAKELIN Arango) Support Person: laisha chaudhary (11/18/2016 06:32:YAKELIN Arango) Support Person Relationship: (11/18/2016 06:32:YAKELIN Arango) Cultural/Spritual Practice: No (11/18/2016 06:32:YAKELIN Arango) Spir/Cult Dietary Needs: No (11/18/2016 06:32:YAKELIN Arango) LIVING SITUATION/DISCHARGE PLAN Living Arrangements: House (11/18/2016 06:32:YAKELIN Arango) Adequate Access to:: Electric; Heat; Refrigeration; Plumbing/Running water; Phone; Transportation (11/18/2016 06:32:YAKELIN Arango) WIC Program: No (11/18/2016 06:32:YAKELIN Arango) 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 Real Estate Associate 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: [place] (11/18/2016 06:32:YAKELIN Arango) Person to Help after Discharge: MOm (11/18/2016 06:32:YAKELIN Arango) Currently Using Commun Resources: No (11/18/2016 06:32:YAKELIN Arango) Outside Agency/Inspector Of Weights And Measures: No (11/18/2016 06:32:YAKELIN Arango) Car Seat for Discharge: Yes (11/18/2016 06:32:YAKELIN Arango) Adoption Requested: No (11/18/2016 06:32:YAKELIN Arango) Pt Contact w/ Post : N/A (11/18/2016 06:32:YAKELIN Arango) LABS Blood Type: O Positive (11/18/2016 06:32:Alicia Rader RN) Antibody Screen: Negative (11/18/2016 06:32:Kanika Dietrich RN) Rho(G) this : Not Applicable (11/18/2016 06:32:Kanika Dietrich RN) Hemoglobin: 9.3 L (11/19/2016 06:37:QS system process) Hematocrit: 27.8 L (11/19/2016 06:37:QS system process) MCV: 80 (11/19/2016 06:37:QS system process) Group Beta Strep: Positive (11/18/2016 06:32:Kanika Dietrich RN) Gonorrhea: Negative (11/18/2016 06:32:Kanika Dietrich RN) Chlamydia: Negative (11/18/2016 06:32:Kanika Dietrich RN) RPR/VDRL: Nonreactive (11/18/2016 06:32:Kanika Dietrich RN) HIV Results: Negative (11/18/2016 06:32:Kanika Dietrich RN) Hepatitis B: Negative (11/18/2016 06:32:Kanika Dietrich RN) Rubella: Immune (11/18/2016 06:32:Kanika Dietrich RN) OB/PREVIOUS HISTORY Previous Procedures: None (11/18/2016 06:32:YAKELIN Arango) Current Procedures: Ultrasound (11/18/2016 06:32:AYKELIN Arango) History of Previous : No (11/18/2016 06:32:YAKELIN Arango) History of Gestational Diabetes: No (11/18/2016 06:32:YAKELIN Arango) History of PIH: No (11/18/2016 06:32:YAKELIN Arango) History of Incompetent Cervix: No (11/18/2016 06:32:YAKELIN Arango) History of Placenta Previa/Abrup: No (11/18/2016 06:32:YAKELIN Arango) History of Macrosomia: No (11/18/2016 06:32:YAKELIN Arango) History of IUGR: No (11/18/2016 06:32:Na Lowe RN) History of Hemorrhage: No (11/18/2016 06:32:YAKELIN Arango) History of Loss/Stillborn: No (11/18/2016 06:32:YAKELIN Arango) History of : No (11/18/2016 06:32:YAKELIN Arango) History of D (Rh) Sensitization: No (11/18/2016 06:32:YAKELIN Arango) History Recurrent Loss/Stillborn: No (11/18/2016 06:32:YAKELIN Arango) History Depression/PP Depression: No (11/18/2016 06:32:YAKELIN Arango) History of Uterine Anomaly/GERBER: No (11/18/2016 06:32:YAKELIN Arango) History of Infertility: No (11/18/2016 06:32:YAKELIN Arango) History of ART Treatment: No (11/18/2016 06:32:Na Lowe RN) History of GERBER: No (11/18/2016 06:32:Na Lowe RN) MEDICAL HISTORY Med Hx Diabetes: No (11/18/2016 06:32:YAKELIN Arango) Med Hx Hypertension: No (11/18/2016 06:32:YAKELIN Arango) Med Hx Heart Disease: No (11/18/2016 06:32:YAKELIN Arango) Med Hx Autoimmune Disorder: No (11/18/2016 06:32:YAKELIN Arango) Med Hx Kidney Disease/UTI: No (11/18/2016 06:32:YAKELIN Arango) Med Hx Neurologic/Epilepsy: No (11/18/2016 06:32:YAKELIN Arango) Med Hx Psychiatric Disorders: No (11/18/2016 06:32:YAKELIN Arango) Med Hx Hepatitis/Liver Disease: No (11/18/2016 06:32:YAKELIN Arango) Med Hx Varicosities/Phlebitis: No (11/18/2016 06:32:YAKELIN Arango) Med Hx Thyroid Dysfunction: No (11/18/2016 06:32:YAKELIN Arango) Med Hx Trauma/Violence: No (11/18/2016 06:32:YAKELIN Arango) Med Hx Blood Transfusion: No (11/18/2016 06:32:YAKELIN Arango) Med Hx Pulmonary (Asthma,TB): No (11/18/2016 06:32:YAKELIN Arango) Med Hx Breast: No (11/18/2016 06:32:YAKELIN Arango) Med Hx HOLE FILLER Surgery: No (11/18/2016 06:32:YAKELIN Arango) Med Hx Hospitalization/Surgery: No (11/18/2016 06:32:YAKELIN Arango) Med Hx Anesthetic Complications: No (11/18/2016 06:32:YAKELIN Arango) Med Hx Abnormal Pap Smear: No (11/18/2016 06:32:Na Lowe RN) Other Medical Diseases: No (11/18/2016 06:32:YAKELIN Arango) Med Hx Significant Family Hx: No (11/18/2016 06:32:YAKELIN Arango) INFECTIOUS HISTORY Inf Hx Gonorrhea: No (11/18/2016 06:32:Na Lowe RN) Inf Hx Chlamydia: No (11/18/2016 06:32:Na Lowe [facility]) Inf Hx Syphilis: No (11/18/2016 06:32:Na Lowe [facility]) Inf Hx HIV/AIDS: No (11/18/2016 06:32:YAKELIN Arango) Inf Hx Human Papilloma Virus: No (11/18/2016 06:32:Na Lowe [facility]) Inf Hx Pt/Partner Genital Herpes: No (11/18/2016 06:32:Na Lowe RN) Inf Hx Tuberculosis/Exposure: No (11/18/2016 06:32:Na Lowe [facility]) Inf Hx Hepatitis B,C: No (11/18/2016 06:32:Na Lowe RN) Inf Hx Rash or Viral Illness: No (11/18/2016 06:32:Na Lowe RN) GENETIC HISTORY Gen Hx Age >=35 at [facility]IM[facility]: No (11/18/2016 06:32:YAKELIN Arango) Gen Hx Thalassemia: No (11/18/2016 06:32:YAKELIN Arango) Gen Hx Congenital Heart Defect: No (11/18/2016 06:32:YAKELIN Arango) Gen Hx Neural Tube Defect: No (11/18/2016 06:32:YAKELIN Arango) Gen Hx Down's Syndrome: No (11/18/2016 06:32:YAKELIN Arango) Gen Hx Isidro-Sachs: No (11/18/2016 06:32:YAKELIN Arango) Gen Hx Jaciel: No (11/18/2016 06:32:YAKELIN Arango) Gen Hx Familial Dysautonomia: No (11/18/2016 06:32:YAKELIN Arango) Gen Hx Sickle Cell Disease/Trait: No (11/18/2016 06:32:YAKELIN Arango) Gen Hx Hemophilia/Blood Disorder: No (11/18/2016 06:32:YAKELIN Arango) Gen Hx Muscular Dystrophy: No (11/18/2016 06:32:YAKELIN Arango) Gen Hx Cystic Fibrosis: No (11/18/2016 06:32:YAKELIN Arango) Gen Hx [place] Chorea: No (11/18/2016 06:32:YAKELIN Arango) Gen Hx Mental Retardation/Autism: No (11/18/2016 06:32:YAKELIN Arango) Gen Hx Tested for Fragile X: No (11/18/2016 06:32:YAKELIN Arango) Gen Hx Other Inher/Chromosomal: No (11/18/2016 06:32:YAKELIN Arango) Gen Hx Maternal Metabolic DO: No (11/18/2016 06:32:YAKELIN Arango) Gen Hx Pt Father or FOB Defect: No (11/18/2016 06:32:YAKELIN Arango) Gen Hx Other Genetic History: No (11/18/2016 06:32:YAKELIN Arango) Gen Hx Drugs/Meds since LMP: Yes (11/18/2016 06:32:YAKELIN Arango) Gen Hx Medications: vitamins iron (11/18/2016 06:32:YAKELIN Arango)
[2016-11-19] MEDS: IBUPROFEN 800 MG TABLET PO SCH ×2 (18:19→23:24)
[2016-11-20] MEDS: IBUPROFEN 800 MG TABLET PO SCH ×2 (05:58→12:07)
--- NOTE | 2016-11-20 06:01 | L&D General Admission ---
General Admit Datetime Report Generated by CPN: 11/20/2016 06:00 INFORMATION Patient Age: 26 (10/18/2016 16:46:QS system process) EDC: 11/11/2016 00:00 (11/18/2016 06:32:Alicia Rader RN) EDC per Ultrasound: 11/11/2016 00:00 (11/18/2016 06:32:Alicia Rader RN) : 2 (11/18/2016 06:32:Alicia Rader RN) Para: 0 (11/18/2016 06:32:Ailcia Rader RN) Term: 0 (11/18/2016 06:32:YAKELIN Arango) : 0 (11/18/2016 06:32:YAKELIN Arango) Spontaneous Abortions: 1 (11/18/2016 06:32:YAKELIN Arango) Induced Abortions: 0 (11/18/2016 06:32:YAKELIN Arango) Livin (11/18/2016 06:32:YAKELIN Arango) Cesareans: 0 (11/18/2016 06:32:Na Lowe RNC) VBACs: 0 (11/18/2016 06:32:Na Michellence, RNC) Ectopic: 0 (11/18/2016 06:32:Na Michellence, RNC) Multiple Births: 0 (11/18/2016 06:32:Na Lowe, RNC) Baby, Number in Womb: 1 (11/18/2016 06:32:Na Michellence, RNC) CARE Primary Shafting Cleaner: [facility] (11/18/2016 06:32:YAKELIN Walton) Month of 1st Visit: march (11/18/2016 06:32:YAKELIN Arango) Adequate Care: Yes (11/18/2016 06:32:YAKELIN Walton) Prepregnancy Weight (lb): 145 (11/18/2016 06:32:YAKELIN Arango) Prepregnancy Weight (kg): 65.9 (11/18/2016 06:32:QS system process) Height (in): 64 (11/19/2016 12:18:QS system process) ALLERGIES Medication Allergy: No (11/18/2016 06:32:Lexi Grajeda RN) Medication Allergies: No Known Allergies (11/18/2016) (11/18/2016 06:33:QS system process) Latex Allergy: No Latex Allergies (11/18/2016 06:32:Lexi Grajeda RN) Food Allergies: carrots (11/18/2016 06:32:Na Martineznce, RNC) Environmental Allergies: no (11/18/2016 06:32:Na Bellavance, RNC) COMMUNICATION Primary Language: South African (11/18/2016 06:32:Lexi Grajeda, RNC) Communication Barrier(s): Visual deficit (11/18/2016 06:32:Na Michellence, RNC) Communication Needs: contacts (11/18/2016 06:32:Na Bellavance, RNC) DEMOGRAPHICS Address: [place] [address] (10/18/2016 16:46:QS system process) Zipcode: [phone] (10/18/2016 16:46:QS system process) Home (10/18/2016 16:46:QS system process) SSN: [id number] (10/18/2016 16:46:QS system process) Next of Kin Name: ÁNGELA SHAW (10/18/2016 16:46:QS system process) Next of Kin (10/18/2016 16:46:QS system process) Next of Kin Relationship: OR (10/18/2016 16:46:QS system process) Date of : 1990 (10/18/2016 16:46:QS system process) Marital Status: (10/18/2016 16:46:QS system process) Sex: Female (10/18/2016 16:46:QS system process) Race: (10/18/2016 16:46:QS system process) Ethnicity: Non- or (10/18/2016 16:46:QS system process) Gnosticism: None (10/18/2016 16:46:QS system process) DRUG AND ALCOHOL USE Alcohol: No (11/18/2016 06:32:YAKELIN Arango) Cigarettes: Former Smoker. [id number] (11/18/2016 06:32:YAKELIN Arango) Marijuana: No (11/18/2016 06:32:Na Bellavance, RNC) Cocaine: No (11/18/2016 06:32:Na Bellavance, RNC) Other Illicit Drugs: No (11/18/2016 06:32:Na Bellavance, RNC) VACCINE HISTORY Influenza Vaccine: Yes (11/18/2016 06:32:Na Bellavance, RNC) Influenza Date: 2013 (11/18/2016 06:32:Na Bellavance, RNC) Pneumococcal Vaccine: Uncertain (11/18/2016 06:32:Na Bellavance, RNC) Tetanus Vaccine: Yes (11/18/2016 06:32:Na Bellavance, RNC) Tetanus Date: 2013 (11/18/2016 06:32:Na Bellavance, RNC) Tdap Vaccine: Yes (11/18/2016 06:32:Na Bellavance, RNC) Tdap Date: 2013 (11/18/2016 06:32:Na Bellavance, RNC) Hepatitis B Vaccine: Yes (11/18/2016 06:32:Na Bellavance, RNC) 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: [facility] (11/18/2016 06:32:YAKELIN Arango) Feeding Preference: Breast (11/18/2016 06:32:YAKELIN Arango) Benefit of Breast Feed Discussed: Yes (11/18/2016 06:32:YAKELIN Arango) Circumcision: N/A (11/18/2016 06:32:YAKELIN Arango) Classes Attended: No (11/18/2016 06:32:YAKELIN Arango) Tubal Ligation: No (11/18/2016 06:32:YAKELIN Arango) Tubal Authorization Signed: N/A (11/18/2016 06:32:YAKELIN Arango) Consent: N/A (11/18/2016 06:32:YAKELIN Arango) Consent Signed: N/A (11/18/2016 06:32:YAKELIN Arango) Pain Management Plans: Natural (11/18/2016 06:32:YAKELIN Arango) Plans for Labor and Delivery: Plan (11/18/2016 06:32:YAKELIN Arango) Support Person: laisha chaudhary (11/18/2016 06:32:YAKELIN Arango) Support Person Relationship: (11/18/2016 06:32:YAKELIN Arango) Cultural/Spritual Practice: No (11/18/2016 06:32:YAKELIN Arango) Spir/Cult Dietary Needs: No (11/18/2016 06:32:YAKELIN Arango) LIVING SITUATION/DISCHARGE PLAN Living Arrangements: House (11/18/2016 06:32:YAKELIN Arango) Adequate Access to:: Electric; Heat; Refrigeration; Plumbing/Running water; Phone; Transportation (11/18/2016 06:32:YAKELIN Arango) WIC Program: No (11/18/2016 06:32:YAKELIN Arango) 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 Hatchery Attendant Person: [place] (11/18/2016 06:32:YAKELIN Arango) Person to Help after Discharge: MO[facility] (11/18/2016 06:32:YAKELIN Arango) Currently Using Commun Resources: No (11/18/2016 06:32:YAKELIN Arango) Outside Agency/Composite Engineer: No (11/18/2016 06:32:YAKELIN Arango) Car Seat for Discharge: Yes (11/18/2016 06:32:YAKELIN Arango) Adoption Requested: No (11/18/2016 06:32:YAKELIN Arango) Pt Contact w/ Post : N/A (11/18/2016 06:32:YAKELIN Arango) LABS Blood Type: O Positive (11/18/2016 06:32:Alicia Rader RN) Antibody Screen: Negative (11/18/2016 06:32:Kanika Dietrich RN) Rho(G) this : Not Applicable (11/18/2016 06:32:Kanika Dietrich RN) Hemoglobin: 9.3 L (11/19/2016 06:37:QS system process) Hematocrit: 27.8 L (11/19/2016 06:37:QS system process) MCV: 80 (11/19/2016 06:37:QS system process) Group Beta Strep: Positive (11/18/2016 06:32:Kanika Dietrich RN) Gonorrhea: Negative (11/18/2016 06:32:Kanika Dietrich RN) Chlamydia: Negative (11/18/2016 06:32:Kanika Dietrich RN) RPR/VDRL: Nonreactive (11/18/2016 06:32:Kanika Dietrich RN) HIV Results: Negative (11/18/2016 06:32:Kanika Dietrich RN) Hepatitis B: Negative (11/18/2016 06:32:Kanika Dietrich RN) Rubella: Immune (11/18/2016 06:32:Kanika Dietrich RN) OB/PREVIOUS HISTORY Previous Procedures: None (11/18/2016 06:32:YAKELIN Arango) Current Procedures: Ultrasound (11/18/2016 06:32:YAKELIN Arango) History of Previous : No (11/18/2016 06:32:YAKELIN Arango) History of Gestational Diabetes: No (11/18/2016 06:32:YAKELIN rAango) History of PIH: No (11/18/2016 06:32:YAKELIN Arango) History of Incompetent Cervix: No (11/18/2016 06:32:YAKELIN Arango) History of Placenta Previa/Abrup: No (11/18/2016 06:32:YAKELIN Arango) History of Macrosomia: No (11/18/2016 06:32:YAKELIN Arango) History of IUGR: No (11/18/2016 06:32:Na Lowe RN) History of Hemorrhage: No (11/18/2016 06:32:YAKELIN Arango) History of Loss/Stillborn: No (11/18/2016 06:32:YAKELIN Arango) History of : No (11/18/2016 06:32:YAKELIN Arango) History of D (Rh) Sensitization: No (11/18/2016 06:32:YAKELIN Arango) History Recurrent Loss/Stillborn: No (11/18/2016 06:32:YAKELIN Arango) History Depression/PP Depression: No (11/18/2016 06:32:YAKELIN Arango) History of Uterine Anomaly/GERBER: No (11/18/2016 06:32:YAKELIN Arango) History of Infertility: No (11/18/2016 06:32:YAKELIN Arango) History of ART Treatment: No (11/18/2016 06:32:Na Lowe RN) History of GERBER: No (11/18/2016 06:32:Na Lowe RN) MEDICAL HISTORY Med Hx Diabetes: No (11/18/2016 06:32:YAKELIN Arango) Med Hx Hypertension: No (11/18/2016 06:32:YAKELIN Arango) Med Hx Heart Disease: No (11/18/2016 06:32:YAKELIN Arango) Med Hx Autoimmune Disorder: No (11/18/2016 06:32:YAKELIN Arango) Med Hx Kidney Disease/UTI: No (11/18/2016 06:32:YAKELIN Arango) Med Hx Neurologic/Epilepsy: No (11/18/2016 06:32:YAKELIN Arango) Med Hx Psychiatric Disorders: No (11/18/2016 06:32:YAKELIN Arango) Med Hx Hepatitis/Liver Disease: No (11/18/2016 06:32:YAKELIN Arango) Med Hx Varicosities/Phlebitis: No (11/18/2016 06:32:YAKELIN Arango) Med Hx Thyroid Dysfunction: No (11/18/2016 06:32:YAKELIN Arango) Med Hx Trauma/Violence: No (11/18/2016 06:32:YAKELIN Arango) Med Hx Blood Transfusion: No (11/18/2016 06:32:YAKELIN Arango) Med Hx Pulmonary (Asthma,TB): No (11/18/2016 06:32:YAKELIN Arango) Med Hx Breast: No (11/18/2016 06:32:YAKELIN Arango) Med Hx MEDICAL NUMERICAL CONTROL OPERATOR Surgery: No (11/18/2016 06:32:YAKELIN Arango) Med Hx Hospitalization/Surgery: No (11/18/2016 06:32:YAKELIN Arango) Med Hx Anesthetic Complications: No (11/18/2016 06:32:YAKELIN Arango) Med Hx Abnormal Pap Smear: No (11/18/2016 06:32:Na Lowe RN) Other Medical Diseases: No (11/18/2016 06:32:YAKELIN Arango) Med Hx Significant Family Hx: No (11/18/2016 06:32:YAKELIN Arango) INFECTIOUS HISTORY Inf Hx Gonorrhea: No (11/18/2016 06:32:Na Lowe RN) Inf Hx Chlamydia: No (11/18/2016 06:32:Na Lowe [facility]) Inf Hx Syphilis: No (11/18/2016 06:32:Na Lowe [facility]) Inf Hx HIV/AIDS: No (11/18/2016 06:32:YAKELIN Arango) Inf Hx Human Papilloma Virus: No (11/18/2016 06:32:Na Lowe [facility]) Inf Hx Pt/Partner Genital Herpes: No (11/18/2016 06:32:Na Lowe RN) Inf Hx Tuberculosis/Exposure: No (11/18/2016 06:32:Na Lowe [facility]) Inf Hx Hepatitis B,C: No (11/18/2016 06:32:Na Lowe RN) Inf Hx Rash or Viral Illness: No (11/18/2016 06:32:Na Lowe RN) GENETIC HISTORY Gen Hx Age >=35 at [place]: No (11/18/2016 06:32:YAKELIN Arango) Gen Hx Thalassemia: No (11/18/2016 06:32:YAKELIN Arango) Gen Hx Congenital Heart Defect: No (11/18/2016 06:32:YAKELIN Arango) Gen Hx Neural Tube Defect: No (11/18/2016 06:32:YAKELIN Arango) Gen Hx Down's Syndrome: No (11/18/2016 06:32:YAKELIN Arango) Gen Hx Isidro-Sachs: No (11/18/2016 06:32:YAKELIN Arango) Gen Hx Jaciel: No (11/18/2016 06:32:YAKELIN Arango) Gen Hx Familial Dysautonomia: No (11/18/2016 06:32:YAKELIN Arango) Gen Hx Sickle Cell Disease/Trait: No (11/18/2016 06:32:YAKELIN Arango) Gen Hx Hemophilia/Blood Disorder: No (11/18/2016 06:32:YAKELIN Arango) Gen Hx Muscular Dystrophy: No (11/18/2016 06:32:YAKELIN Arango) Gen Hx Cystic Fibrosis: No (11/18/2016 06:32:YAKELIN Arango) Gen Hx [place] Chorea: No (11/18/2016 06:32:YAKELIN Arango) Gen Hx Mental Retardation/Autism: No (11/18/2016 06:32:YAKELIN Arango) Gen Hx Tested for Fragile X: No (11/18/2016 06:32:YAKELIN Arango) Gen Hx Other Inher/Chromosomal: No (11/18/2016 06:32:YAKELIN Arango) Gen Hx Maternal Metabolic DO: No (11/18/2016 06:32:YAKELIN Arango) Gen Hx Pt Father or FOB Defect: No (11/18/2016 06:32:YAKELIN Arango) Gen Hx Other Genetic History: No (11/18/2016 06:32:YAKELIN Arango) Gen Hx Drugs/Meds since LMP: Yes (11/18/2016 06:32:YAKELIN Arango) Gen Hx Medications: vitamins iron (11/18/2016 06:32:YAKELIN Arango)
--- NOTE | 2016-11-20 06:16 | L&D Care Plan ---
LD CARE PLANS Datetime Report Generated by CPN: 11/20/2016 06:15 Datetime: 11/18/2016 07:27 Pain State: Actual (YAKELIN Walton) Related To: Labor and Delivery Process (YAKELIN Walton) Goal(s): Patients Pain will be Assessed and Managed; Patient will Verbalize Adequate Relief of Pain or the Ability to [place] with Current Pain (YAKELIN Walton) Interventions: Assess Pain Severity on Scale of 0 (None) to 5 (Severe); Assess Type, Location and Intensity of Pain Each Time Client Reports Discomfort and Notify Provider if Unusal Pain Develops; Encourage Proper Breathing and Relaxation Techniques; Offer Alternatives Such as Repositioning, Calm Environment, Massages, Diversional Activities, Ice Pack, Splinting, and Ambulation; Administer Analgesics as Ordered; Assist with Epidural Placement as Appropriate; Evaluate Therapeutic Effectiveness of Medication and Treatments (YAKELIN Walton) Anxiety State: Risk For (YAKELIN Walton) Related To: Labor and Delivery Process (YAKELIN Walton) Goal(s): Patient will have Decreased Anxiety and be able to Function at Acceptable Levels (YAKELIN Walton) Interventions: Assess Verbal and Nonverbal Behavioral Indicators of Anxiety; Assist Patient to Identify and Verbalize Symptoms of Anxiety; Identify and Demonstrate Techniques to Control Anxiety; Assist Patient with Coping Mechanisms to Manage Anxiety; Provide Theraputic Touch for the Patient; Explain to Patient, Using a Calm Reassuring Approach and Nonmedical Terms, All Activities, Procedures, and Concerns; Instruct Patient and Family about Post Discharge Care, Limitations, Symptoms to Report and Resources Available (YAKELIN Walton) Outcome: Patient will Identify, Verbalize and Demonstrate Techniques to Control Anxiety (YAKELIN Walton) Outcome: Patient's Posture, Facial Expressions, Gestures and Activity Level will Reflect Decreased Anxiety (YAKELIN Walton) Outcome: Patient will Verbalize a Sense of Control and/or Acceptance of the Situation (YAKELIN Walton) Outcome: Patient will Identify and Utilize Support Person (YAKELIN Walton) Knowledge Deficit State: Actual (YAKELIN Walton) Related To: Labor and Delivery Process; Treatment and Procedures (YAKELIN Walton) Goal(s): Patient will Accurately Verbalize Understanding of Plan of Care and Treatment; Patient and Family will Accurately Verbalize Understanding of the Disease Process (YAKELIN Walton) Interventions: Assess Motivation and Willingness of Patient/Family to Learn; Assess Preferred Learning Mode: One to One Instruction, Reading, Videos, Group Discussion or Demonstration; Assess Barriers to Learning: Pain, Emotional State, Language Barrier, Cognitive Impairment, Visual or Hearing Deficits; Assess Patient and Family Knowledge of Disease Process, Medications and Treatment; Discuss Therapy and/or Treatment Options, Describe Rationale Behind Management, Therapy and Treatment Recommendations; Instruct Patient and Family on Signs and Symptoms to Report; Instruct Patient and Family on Medication Effects and Side Effects; Provide Appropriate and Timely Education Using Multiple Techniques; Provide Patient and Family with Support Group Information and Resources; Give Clear and Thorough Explanations and Demonstrations (YAKELIN Walton) Outcome: Patient and Family will Verbalize Understanding of Condition, Treatment and Signs and Symptoms to Report (YAKELIN Walton) Outcome: Patient will Identify Perceived Learning Needs and Express Motivation to Learn (YAKELIN Walton) Outcome: Patient will Verbalize Understanding of Desired Content, and/or Performs Desired Skill Prior to Discharge (YAKELIN Walton) Infection State: Risk For (YAKELIN Walton) Related To: Prolonged Labor or Induction (YAKELIN Walton) Goal(s): The Patient will be Free of Infection, Vital Signs Stable and Lab Work within Normal Parameters (YAKELIN Walton) Interventions: Instruct and Reinforce Proper Handwashing, Hygiene, and Care Techniques to Patient and Family; Monitor Vital Signs; Monitor Patient for the Following Signs of Infection: Fever, Abdominal Tenderness, Unusual Discharge; Monitor Aminiotic Fluid, Urine and Lochia for Color and Odor; Observe Wounds, Incisions and Invasive Line Sites for Redness, Drainage and Edema; Assess IV Sites per Hospital Policy; Monitor Lab and Test Results and Notify Provider of Abnormal Findings; Assess Nutritional Status and Promote Good Nutrition (YAKELIN Walton) Outcome: Patient will Remain Free of Infection (YAKELIN Walton) Outcome: Infection will be Recognized Early to Allow for Prompt Treatment (YAKELIN Walton) Outcome: Patient will have Vital Signs Within Expected Range (YAKELIN Walton) Fluid Volume State: Not Applicable (YAKELIN Walton) Injury State: Not Applicable (Lexi Taras, RNC) Impaired Skin Integrity State: Not Applicable (Lexi Taras, RNC) Parenting Impaired State: Not Applicable (Lexi Taras, RNC) Nutrition State: Not Applicable (Lexi Taras, RNC) Grieving State: Not Applicable (Lexi Grajeda, RNC) Additional Care Plan State: Not Applicable (Lexi Grajeda, RNC)
[2016-11-20 08:05] VITALS: BP 126/76
[2016-11-20] MEDS ORDERED: MAG HYDROX/AL HYDROX/SIMETH SUSP 30 ML UDCUP PO PRN (10:06)
--- NOTE | 2016-11-20 10:22 | PDOC PROGRESS REPORT ---
Subjective-OB Subjective: Post Delivery Day: 26 year old. Denies any needs at this time Doing well, OOB in shower, breast feeding, voiding, scant lochia, ready to go home Physical Exam (OB) Vital Signs: Temp Pulse Resp BP Pulse Ox 97.9 F 73 14 126/76 H 100 11/20/16 08:50 11/20/16 08:50 11/20/16 08:50 11/20/16 08:50 11/20/16 08:50 Intake & Output 11/19/16 11/20/16 11/21/16 06:59 06:59 06:59 Intake Total 1270 350 Output Total 900 1600 Balance 370 -1250 - PIH/Pre-Eclampsia Headache: Absent Epigastric Pain: No Visual Changes: No - Dressing Removed: No Incision: Dressing, Well Approximated Closure Type: op site - Lochia Lochia Amount: Scant < 10 ml Lochia Color: Rubra/Red - Abdomen Description: Soft, Round Hernia Present: No Fundal Description: Firm, Midline Fundal Height: u/u - u/2 Objective-Diagnostic Laboratory: 11/19/16 06:37 Assessment and Plan(PN) - Assessment and Plan (1) delivery delivered Is this a current diagnosis for this admission?: Yes (2) Acute blood loss anemia Is this a current diagnosis for this admission?: Yes - Time Spent with Patient Time with patient: Less than 15 minutes - home today Medications reviewed and adjusted accordingly: Yes - Disposition Anticipated Discharge: Home
--- NOTE | 2016-11-20 10:27 | PDOC DISCHARGE SUMMARY ---
Final Diagnosis Discharge Date: 11/20/16 - Final Diagnosis (1) delivery delivered Is this a current diagnosis for this admission?: Yes (2) Acute blood loss anemia Is this a current diagnosis for this admission?: Yes Discharge Data - Discharge Medication Home Medications: Ferrous Sulfate [Iron] 1 tab PO DAILY 11/18/16 Cmb#95/Iron/FA/Dha [ + Dha Combo Pack] 1 tab PO DAILY 11/18/16 Ibuprofen [Motrin 800 mg Tablet] 800 mg PO Q6 #60 tablet 11/20/16 Oxycodone HCl/Acetaminophen [Percocet 5-325 mg Tablet] 1 tab PO Q4HP PRN #30 tablet 11/20/16 Gestational Age: 41 Reason(s) for Admission: PROM, Group B Strep Positive Admission Note: SC trait Procedures: NST, Ultrasound Intrapartum Procedure(s): : Low Cervical, Transverse - Data Baby 1 Female at 1 minute: 7 at 5 minutes: 9 Weight: 4.054 kg Home with Mother: Yes Complications: No - Diagnosis Test Laboratory: Temp Pulse Resp BP Pulse Ox 97.9 F 73 14 126/76 H 100 11/20/16 08:50 11/20/16 08:50 11/20/16 08:50 11/20/16 08:50 11/20/16 08:50 11/18/16 11/18/16 11/19/16 06:30 07:35 06:37 RBC 3.96 3.49 L Hgb 10.7 L 9.3 L Hct 31.6 L 27.8 L Urine Opiates Screen NEGATIVE - Discharge information/Instructions Discharge Activity: Activity As Tolerated, Balance Activity w/Rest, No Driving, No Lifting Over 10 Pounds, No Lifting/Push/Pulling, Pelvic Rest, Slowly Increase Activity, No tub bath, Walk Frequently Discharge Diet: As Tolerated, Regular Disposition: HOME, SELF-CARE Follow up with: [facility]: 1, Weeks
[2016-11-20] MEDS: DOCUSATE SODIUM 100 MG CAPSULE PO SCH (10:28)
[2016-11-20] MEDS: PRENATAL VITAMIN W-O CA NO5/FE FUMARATE/FA CAPSULE PO SCH (10:29)
== END 2016-11-20 14:50 | disposition home or self-care (01) | DRG 766 ==
LOC: LC 06:21 → LR 07:19 → 2S 22:39
PROVIDERS: ADMIT Obstetrics & Gynecology; ATTEND Obstetrics & Gynecology
PROC: 10D00Z1 Extraction of Products of Conception, Low, Open Approach (ICD-10-PCS; principal; 2016-11-18)
PROC: 4A1H7CZ Monitoring of Products of Conception, Cardiac Rate, Via Natural or Artificial Opening (ICD-10-PCS; 2016-11-18)
PROC: 10H073Z Insertion of Monitoring Electrode into Products of Conception, Via Natural or Artificial Opening (ICD-10-PCS; 2016-11-18)
DX: O64.8XX0 Obstructed labor due to other malposition and malpresentation, not applicable or unspecified (principal); O62.2 Other uterine inertia; O77.0 Labor and delivery complicated by meconium in amniotic fluid; O48.0 Post-term pregnancy; O99.02 Anemia complicating childbirth; O99.824 Streptococcus B carrier state complicating childbirth; O76 Abnormality in fetal heart rate and rhythm complicating labor and delivery; D57.3 Sickle-cell trait; Z37.0 Single live birth; Z3A.41 41 weeks gestation of pregnancy; Z87.891 Personal history of nicotine dependence
CPT/HCPCS: 1961; 36415; 80307; 81005; 84112; 85025; 85027; 86592; 86850; 86900; 86901; 88307; 94799; J0690; J1885; J2250; J2270; J2405; J2540; J2550; J2590; J3010; J3490

== ENCOUNTER → 2018-03-29 | Outpatient (CLI) | payer BC | LOC: LAB 11:45 | PROVIDERS: ATTEND Nurse Practitioner Family | DX: R30.0 Dysuria (principal) | CPT/HCPCS: 87086; 87088; 87186 ==

== ENCOUNTER → 2018-04-24 | Outpatient (CLI) | payer SELFPAY ==
[2018-04-24 19:05] LABS: BACTERIA (WET MOUNT) 4+ BACTERIA SEEN; EPITHELIALS (WET MOUNT) 3+ EPITHELIALS SEEN; T.VAGINALIS (WET MOUNT) NO TRICHOMONAS SEEN; WBCS (WET MOUNT) 1+ WBCS SEEN; YEAST (WET MOUNT) NO YEAST SEEN
[2018-04-24 20:28] LABS: CHLAM PCR NOT DETECTED (NOT DETECT); GON PCR NOT DETECTED (NOT DETECT)
== END ==
LOC: LAB 18:53
PROVIDERS: ATTEND Nurse Practitioner Family
DX: N89.8 Other specified noninflammatory disorders of vagina (principal)
CPT/HCPCS: 87210; 87491; 87591